=== PATIENT | female | born 1985 | race Caucasian/White ===

== ENCOUNTER 2017-09-01 17:14 | Emergency (ER) | payer BC ==
--- NOTE | 2017-09-01 17:46 | EDM.PDOC ---
ED HPI GENERAL MEDICAL PROBLEM - General Chief Complaint: Upper Extremity Injury/Pain Stated Complaint: RT SHOULDER INJURY Time Seen by Provider: 09/01/17 17:46 Source of Information: Reports: Patient - History of Present Illness INITIAL COMMENTS - FREE TEXT/NARRATIVE: Patient is here today for evaluation of right shoulder injury. She states that she was walking the dog almost 2 hours ago when she tripped over uneven concrete. She was holding the leash in her right hand and tried to maintain control of the leash and landed on her shoulder. She had immediate pain. She was able to move her arm a bit after the fall but states she has minimal movement at the shoulder right now. She can move the elbow without difficulty. Denies numbness or tingling. Patient has no chronic medical conditions. She is not on medications on a daily basis. She denies chance of . Treatments TOWER WATCHMAN: Reports: Other (see below) Other Treatments TOWER WATCHMAN: none Right Shoulder Pain Score (Numeric/FACES): 5 - Related Data Allergies Allergy/AdvReac Type Severity Reaction Status Date / Time No Known Allergies Allergy Verified 09/01/17 17:43 Home Meds: Home Meds Hydrocodone/Acetaminophen [Hydrocodon-Acetaminophen 5-325] 1 each PO Q6HR PRN # 15 tablet 09/01/17 [Rx] Past Medical History - Past Health History Medical/Surgical History: Denies Medical/Surgical History Social & Family History - Tobacco Use Smoking Status *Q: Never Smoker - Caffeine Use Caffeine Use: Reports: Coffee, Tea - Recreational Drug Use Recreational Drug Use: No Review of Systems - Review of Systems Review Of Systems: See Below Respiratory: Reports: No Symptoms Cardiovascular: Reports: No Symptoms Musculoskeletal: Reports: Shoulder Pain (Right) Skin: Reports: Wound (Right shoulder) Neurological: Reports: No Symptoms ED EXAM, GENERAL - Physical Exam Exam: See Below General Appearance: Alert, WD/WN, No Apparent Distress Peripheral Pulses: 2+: Radial (R) Extremities: Other (Right shoulder without ecchymosis or deformity. She has some superior swelling and an abrasion to the superior aspect of her shoulder. Tenderness superiorly and to AC joint. No clavicular or humeral tenderness. Limited ROM right shoulder due to pain. FROM right elbow. NV intact. Unit Manager Rn strength 5/5.) Neurological: Alert, Oriented, No Motor/Sensory Deficits Psychiatric: Normal Affect, Normal Mood Skin Exam: Warm, Dry, Other (Abrasion to superior aspect of right shoulder.) Course - Vital Signs Last Recorded V/S: Last Vital Signs Temp 98.2 F 09/01/17 17:40 Pulse 71 09/01/17 17:40 Resp 20 09/01/17 17:40 BP 130/93 H 09/01/17 17:40 Pulse Ox 100 09/01/17 17:40 - Orders/Labs/Meds Orders: Active Orders 24 hr Category Date Time Status Shoulder Comp Rt [CR] Stat Exams 09/01/17 18:03 Taken Durable Medical Equipment for Discharge [DME for Oth 09/01/17 18:43 Ordered Discharge] [COMM] Stat Meds: Medications Discontinued Medications Generic Name Dose Route Start Last Admin Trade Name Freq PRN Reason Stop Dose Admin Hydrocodone Bitart/Acetaminophen 1 tab 09/01/17 17:50 09/01/17 18:16 Blue 325-5 Mg PO 09/01/17 17:51 1 tab ONETIME ONE Administration - Re-Assessments/Exams Free Text/Narrative Re-Assessment/Exam: X-ray reviewed and does not demonstrate fracture or dislocation. Abrasion was cleaned a topical antibiotic and dressing were applied. Patient placed in a sling, advised to wear this daily. Pendulum exercises discussed at length and demonstrated to the patient to be done 1-2 times daily. She'll take ibuprofen 3 times daily, hydrocodone for breakthrough pain. Patient is to follow-up in the clinic next week if pain not resolved or sooner if needed. 09/01/17 19:00 Departure - Departure Time of Disposition: 18:56 Disposition: Home, Self-Care 01 Condition: Good Clinical Impression: Shoulder injury Qualifiers: Encounter type: initial encounter Laterality: right Qualified Code(s): S49.91XA - Unspecified injury of right shoulder and upper arm, initial encounter - Discharge Information Prescriptions: Hydrocodone/Acetaminophen [Hydrocodon-Acetaminophen 5-325] 1 each PO Q6HR PRN # 15 tablet PRN Reason: Pain Instructions: Shoulder Pain, [id number] Referrals: Magali Irizarry PA [Emergency Provider] - Forms: ED Department Discharge Additional Instructions: Rest, activity as tolerated. Keep your abrasion clean and dry. I recommend a topical antibiotic (triple antibiotic or bacitracin) 1-2 times daily for the next few days. Wear your shoulder sling throughout the day. Do the exercises explained to you in the emergency room 1-2 times every single day. Ice 15 minutes every few hours. Ibuprofen 600 mg 3 times daily. Hydrocodone for breakthrough pain. Follow-up in clinic ([phone]) in one week if pain not resolved or sooner if needed. - My Orders Last 24 Hours: My Active Orders 09/01/17 18:03 Shoulder Comp Rt [CR] Stat 09/01/17 18:43 Durable Medical Equipment for Discharge [DME for Discharge] [COMM] Stat - Assessment/Plan Last 24 Hours: My Active Orders 09/01/17 18:03 Shoulder Comp Rt [CR] Stat 09/01/17 18:43 Durable Medical Equipment for Discharge [DME for Discharge] [COMM] Stat
[2017-09-01] MEDS ORDERED: Acetaminophen/HYDROcodone 325-5 MG Tab PO ONE (17:50)
--- NOTE | 2017-09-02 16:37 | CR ---
Right shoulder: Three views of the right shoulder were obtained. Comparison: No prior study. Distal clavicle is slightly elevated. Glenohumeral joint appears within normal limits. No fracture or other abnormality is seen. Impression: 1. Distal clavicle is slightly elevated and minimal acromioclavicular separation is possible if patient has correlating symptoms. 2. Right shoulder study is otherwise unremarkable. Diagnostic code #3
== END 2017-09-01 19:05 | disposition home or self-care (01) ==
LOC: JD.ED 17:14
DX: S49.91XA Unspecified injury of right shoulder and upper arm, initial encounter (principal); W01.0XXA Fall on same level from slipping, tripping and stumbling without subsequent striking against object, initial encounter
CPT/HCPCS: 73030; 99284; A9270; 99283

== ENCOUNTER 2019-01-24 18:46 | Emergency (ER) | payer OTHER, BC ==
[2019-01-24] MEDS ORDERED: Sodium Chloride 0.9% 1,000 ML IV SCH (19:00)
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
[2019-01-24] MEDS ORDERED: Iopamidol 755 Mg/ML 100 ML Bottle IVPUSH ONE (19:09)
[2019-01-24] MEDS ORDERED: Sodium Chloride 0.9% 100 ML IV SCH (19:15)
[2019-01-24] MEDS ORDERED: Ibuprofen 600 MG Tab PO ONE (19:53)
--- NOTE | 2019-01-25 08:54 | CT ---
CT chest Technique: Multiple axial sections were obtained from above the lung apices inferiorly through the lung bases. Intravenous contrast was utilized. Findings: Pulmonary arteries are fairly well-opacified. No filling defects are seen to indicate pulmonary embolism. Aorta shows no aneurysm. No fluid seen within the mediastinum. No mediastinal mass or adenopathy is seen. No pericardial thickening is identified. Small nodule identified within the right lung base measuring 5 mm. Lungs otherwise are clear. No acute parenchymal change is seen. Bone window settings were reviewed which show no acute abnormality. Visualized portions of the upper abdominal structures show no discrete abnormality. Impression: 1. 5 mm nodule within the right lung base. If patient is not a smoker, this can be ignored. If patient is a smoker, recommend repeat noncontrast chest CT in one year. 2. No acute parenchymal change is seen within on CT study of the chest. Diagnostic code #9 Slightly disagree with preliminary report from [facility] (pulmonary nodule as noted above), finalized on 01/24/19, 8:31 PM Central Time, code #2
--- NOTE | 2019-01-25 08:57 | CT ---
CT cervical spine Technique: Multiple axial sections were obtained from above C1 inferiorly to the bottom of T3. Reconstructed sagittal and coronal images were reviewed. Findings: Vertebral body heights and disc spaces are maintained. No bony central or bony neural foraminal stenosis is seen. No fracture is seen. No abnormal subluxation is seen on the reconstructed sagittal images. Impression: 1. Nothing acute is seen on CT study of the cervical spine. Diagnostic code #1 I agree with preliminary report from [facility], finalized on 01/24/19, 8:28 PM Central Time
== END 2019-01-24 20:39 | disposition home or self-care (01) ==
LOC: JD.ED 18:46
DX: S20.219A Contusion of unspecified front wall of thorax, initial encounter (principal); S70.312A Abrasion, left thigh, initial encounter; S70.311A Abrasion, right thigh, initial encounter; R91.1 Solitary pulmonary nodule; V89.2XXA Person injured in unspecified motor-vehicle accident, traffic, initial encounter; V43.63XA Car passenger injured in collision with pick-up truck in traffic accident, initial encounter
CPT/HCPCS: 36415; 71275; 72125; 80053; 82553; 84484; 84703; 85025; 86850; 86900; 86901; 93005; 96360; 99285; A9270; J7030; J7040; Q9967; 93010; 99284

== ENCOUNTER 2019-07-19 07:27 | Day surgery (SDC) | payer BC, OTHER ==
--- NOTE | 2019-07-19 07:15 | PCM.PREANE ---
Preanesthetic Assessment - Anesthesia/Transfusion/Family Hx Anesthesia History: Prior Anesthesia Without Reaction Family History of Anesthesia Reaction: No Transfusion History: No Prior Transfusion(s) Intubation History: Unknown - Review of Systems General: No Symptoms, Fatigue, Malaise Pulmonary: No Symptoms Cardiovascular: No Symptoms, Lightheadedness (primarily with position changes) Gastrointestinal: No Symptoms (pelvic pain: 3/10 GERD on occcasion), Difficulty Swallowing (History of dry mouth dry eyes.) Neurological: No Symptoms (lumbosacral back pain: 0/10 today, motion sickness), Dizziness, Tingling (bilateral legs-non present today) Other: Reports: None, Thyroid Problems (history of thyroid nodule/hashimotos) - Physical Assessment NPO Status Date: 07/18/19 NPO Status Time: 22:00 Vital Signs: HR:80 BP:118/82 Sat:99% Resp:16 Temp:99.4 Height: 1.7 m Weight: 63 kg ASA Class: 2 Mental Status: Alert & Oriented x3 Airway Class: Mallampati = 2 Dentition: Reports: Normal Dentition, Caries Thyro-Mental Finger Breadths: 3 Mouth Opening Finger Breadths: 3 ROM/Head Extension: Full Lungs: Clear to Auscultation, Normal Respiratory Effort Cardiovascular: Regular Rate, Regular Rhythm, No Murmurs - Lab Values: Laboratory Last Values WBC 5.14 K/mm3 (3.98-10.04) 07/11/19 12:19 RBC 5.28 M/mm3 (3.98-5.22) H 07/11/19 12:19 Hgb 15.4 gm/dl (11.2-15.7) 07/11/19 12:19 Hct 45.8 % (34.1-44.9) H 07/11/19 12:19 MCV 86.7 fl (79.4-94.8) 07/11/19 12:19 MCH 29.2 pg (25.6-32.2) 07/11/19 12:19 MCHC 33.6 g/dl (32.2-35.5) 07/11/19 12:19 RDW Std Deviation 39.5 fL (36.4-46.3) 07/11/19 12:19 Plt Count 335 K/mm3 (182-369) 07/11/19 12:19 MPV 9.0 fl (9.4-12.3) L 07/11/19 12:19 Neut % (Auto) 52.7 % (34.0-71.1) 07/11/19 12:19 Lymph % (Auto) 37.4 % (19.3-51.7) 07/11/19 12:19 [place] % (Auto) 8.9 % (4.7-12.5) 07/11/19 12:19 Eos % (Auto) 0 (0.7-5.8) L 07/11/19 12:19 Baso % (Auto) 0.8 % (0.1-1.2) 07/11/19 12:19 Neut # (Auto) 2.71 K/mm3 (1.56-6.13) 07/11/19 12:19 Lymph # (Auto) 1.92 K/mm3 (1.18-3.74) 07/11/19 12:19 [place] # (Auto) 0.46 K/mm3 (0.24-0.36) H 07/11/19 12:19 Eos # (Auto) 0.00 K/mm3 (0.04-0.36) L 07/11/19 12:19 Baso # (Auto) 0.04 K/mm3 (0.01-0.08) 07/11/19 12:19 Creatinine 0.7 mg/dL (0.55-1.02) 07/11/19 12:19 Est Cr Clr Drug Dosing TNP 07/11/19 12:19 Estimated GFR (MDRD) > 60 mL/min (>60) 07/11/19 12:19 Urine Color Yellow (Yellow) 07/11/19 12:18 Urine Appearance Clear (Clear) 07/11/19 12:18 Urine pH 7.0 (5.0-8.0) 07/11/19 12:18 Ur Specific [place] 1.025 (1.005-1.030) 07/11/19 12:18 Urine Protein Negative (Negative) 07/11/19 12:18 Urine Glucose (UA) Negative (Negative) 07/11/19 12:18 Urine Ketones Negative (Negative) 07/11/19 12:18 Urine Occult Blood Negative (Negative) 07/11/19 12:18 Urine Nitrite Negative (Negative) 07/11/19 12:18 Urine Bilirubin Negative (Negative) 07/11/19 12:18 Urine Urobilinogen 0.2 (0.2-1.0) 07/11/19 12:18 Ur Leukocyte Esterase Negative (Negative) 07/11/19 12:18 Above labs reviewed and noted and within acceptable ranges to proceed with scheduled procedure. - Imaging/EKG Impressions: EKG: (2019) Sr rate= 76 - Allergies Allergies/Adverse Reactions: Allergies Allergy/AdvReac Type Severity Reaction Status Date / Time No Known Allergies Allergy Verified 07/18/19 11:39 - Anesthesia Plan Pre-Op Medication Ordered: None - Acknowledgements Anesthesia Type Planned: General Anesthesia Pt an Appropriate Candidate for the Planned Anesthesia: Yes Alternatives and Risks of Anesthesia Discussed w Pt/Guardian: Yes Pt/Guardian Understands and Agrees with Anesthesia Plan: Yes PreAnesthesia Questionnaire - Past Health History Medical/Surgical History: Denies Medical/Surgical History HEENT History: Reports: Impaired Vision, Other (See Below) Other HEENT History: dry eyes, wears glasses Cardiovascular History: Reports: None Respiratory History: Reports: None Gastrointestinal History: Reports: None Genitourinary History: Reports: None 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: Musculoskeletal History: Reports: Back Pain, Chronic, Other (See Below) Other Musculoskeletal History: leg weakness Neurological History: Reports: Other (See Below) Other Neuro History: dizziness Psychiatric History: Reports: None Endocrine/Metabolic History: Reports: Vitamin D Deficiency, Other (See Below) Other Endocrine/Metabolic History: thyroid nodule, hashimotos Hematologic History: Reports: None Immunologic History: Reports: None Oncologic (Cancer) History: Reports: None, Other (See Below) Other Oncologic History: BRCA + Dermatologic History: Reports: Other (See Below) Other Dermatologic History: cystic acne, rash - Past Surgical History Head Surgeries/Procedures: Reports: None HEENT Surgical History: Reports: Oral Surgery Cardiovascular Surgical History: Reports: None Respiratory Surgical History: Reports: None GI Surgical History: Reports: None Female Surgical History: Reports: None Male Surgical History: Reports: None Endocrine Surgical History: Reports: None Dermatological Surgical History: Reports: None - SUBSTANCE USE Smoking Status *Q: Never Smoker Recreational Drug Use History: No - HOME MEDS Home Medications: Home Meds Nystatin 1 dose PO BID 07/18/19 [History] Venlafaxine HCl [Venlafaxine ER] 75 mg PO DAILY 07/18/19 [History] - CURRENT (IN HOUSE) MEDS Current Meds: Current Medications Lactated Ringer's (Ringers, Lactated) 1,000 mls @ 125 mls/hr IV ASDIRECTED KIRSTEN Lidocaine/Sodium Bicarbonate (Buffered Lidocaine 1% In Ns 8.4%) 0.25 ml IDERM ONETIME PRN PRN Reason: Prior to IV Start Sodium Chloride (Saline Flush) 10 ml FLUSH ASDIRECTED PRN PRN Reason: Keep Vein Open
[~2019-07-19 07:27] MED LIST: Lactated Ringers 1,000 ML IV SCH; Lidocaine 1%/Sod Bicarbonate in NS 8.4% 1 ML Syringe IDERM PRN; Sodium Chloride 0.9% 10 ML Syringe FLUSH PRN
[2019-07-19] MEDS ORDERED: Ondansetron 4 MG/2 ML SDV ONE (07:48)
[2019-07-19] MEDS ORDERED: Lidocaine 1% 6 ML ONE (07:48)
[2019-07-19] MEDS ORDERED: Ketorolac 30 MG/ML SDV ONE (07:48)
[2019-07-19] MEDS ORDERED: HYDROmorphone 0.5 MG/0.5 ML Syringe ONE ×2 (07:48→10:38)
[2019-07-19] MEDS ORDERED: Lactated Ringers 1,000 ML ONE ×2 (07:48→09:56)
[2019-07-19] MEDS ORDERED: ceFAZolin 1 GM Vial ONE (07:48)
[2019-07-19] MEDS ORDERED: Propofol 200 MG/20 ML SDV ONE (07:48)
[2019-07-19] MEDS ORDERED: Rocuronium 50 MG/5 ML Vial ONE (07:48)
[2019-07-19] MEDS ORDERED: Dexamethasone 4 MG/ML 5 ML MDV ONE (07:48)
[2019-07-19] MEDS ORDERED: fentaNYL 250 MCG/5 ML SDV ONE (07:49)
[2019-07-19] MEDS ORDERED: Midazolam 1 MG/ML 2 ML SDV ONE (07:49)
[2019-07-19] MEDS ORDERED: Scopolamine 1.5 MG Transdermal Patch TRDERM SCH (08:05)
[2019-07-19] MEDS ORDERED: Midazolam 1 MG/ML 2 ML SDV IVPUSH PRN (09:28)
[2019-07-19] MEDS ORDERED: HYDROmorphone 0.5 MG/0.5 ML Syringe IVPUSH PRN (09:28)
[2019-07-19] MEDS ORDERED: Ondansetron 4 MG/2 ML SDV IVPUSH PRN ×2 (09:28→10:47)
[2019-07-19] MEDS ORDERED: ePHEDrine 50 MG/ML SDV IVPUSH PRN (09:28)
[2019-07-19] MEDS ORDERED: diphenhydrAMINE 50 MG/ML SDV IVPUSH PRN (09:28)
[2019-07-19] MEDS ORDERED: fentaNYL 100 MCG/2 ML SDV IVPUSH PRN (09:28)
[2019-07-19] MEDS ORDERED: Phenylephrine 1 MG in Sodium Chloride 0.9% 10 ML IV SCH (09:30)
[2019-07-19] MEDS: Bupivacaine 0.5% 30 ML SDV ONE ×2 (09:39→09:51)
[2019-07-19] MEDS: Sodium Chloride 0.9% 50 ML SDV ONE ×2 (09:51→10:00)
[2019-07-19] MEDS: Lidocaine 1% with EPINEPHrine 1:100,000 20 ML MDV ONE ×2 (09:51→10:00)
[2019-07-19] MEDS ORDERED: Meperidine 50 MG/ML Vial IVPUSH PRN (10:46)
--- NOTE | 2019-07-19 10:46 | PCM.POSTAN ---
POST ANESTHESIA ASSESSMENT - MENTAL STATUS Mental Status: Alert - VITAL SIGNS Vital Signs: Last Vital Signs Temp 97.7 07/19/19 1039 Pulse 108 07/19/19 1039 Resp 11 07/19/19 1039 BP 119/75 07/19/19 1039 Pulse Ox 108 07/19/19 1039 - RESPIRATORY Respiratory Status: Respiratory Rate WNL, Airway Patent, O2 Saturation Stable, Supplemental Oxygen - CARDIOVASCULAR CV Status: Pulse Rate WNL, Blood Pressure Stable - GASTROINTESTINAL GI Status: No Symptoms - POST OP HYDRATION Hydration Status: Adequate & Stable
[2019-07-19] MEDS ORDERED: Acetaminophen/oxyCODONE 325-5 MG Tab PO PRN (10:47)
--- NOTE | 2019-07-19 10:55 | PCM.OPNOTE ---
- General Post-Op/Procedure Note Date of Surgery/Procedure: 07/19/19 Operative Procedure(s): Laparoscopically assisted total vaginal hysterectomy with bilateral salpingo-oophorectomy Findings: Uterus tubes and ovaries appeared within normal limits. The appendix was noninflamed and flaccid. Gallbladder was filled but appeared noninflamed. Liver edge is within normal limits. No Pelvic pathology noted. Pre Op Diagnosis: 1. Pelvic pain. 2. BRCA1 positive Post-Op Diagnosis: Same Anesthesia Technique: General ET Tube, Local Other Anesthesia Type: Marcaine 0.5%3-5 mL local at each abdominal incision site. Lidocaine quart Primary Surgeon: Dani Lim Secondary Surgeon: Kris Vyas Anesthesia Provider: Marsha Vazquez Radio Interference Trouble Shooter: Natalie Euceda Reason Radio Interference Trouble Shooter Was Necessary: Retraction, assistance, patient safety, quality of care. Pathology: Uterus, bilateral fallopian tubes and ovaries. Fluid Replacement, Intraop: 1,500 Output, Urine Amount: 500 EBL in mLs: 100 Drain/Tube Comments:: Indwelling bladder catheter during surgery only Complications: None Condition: Good Free Text/Narrative:: Surgery duration: 51 minutes The patient was taken to the operating room placed in supine position on the operating table. She received 2 g of Ancef preoperatively for infection prophylaxis. She had signed consent previously. After adequate anesthesia patient was placed in a dorsal lithotomy position. It should be noted she had sequential compression stockings in place for DVT prophylaxis. A uterine manipulator was placed as was an latex free indwelling bladder catheter. This was done after adequate prepping and draping. The patient was placed in supine position and 3 laparoscopic port sites were developed. Marcaine 0.5% approximately 3-5 mL was injected at each site. Verres needle was placed and pneumoperitoneum was achieved with 3.5 L of CO2. Infraumbilical and 2 lateral port sites were developed. Under laparoscopic guidance the upper portion of the hysterectomy was performed. The right infundibulopelvic ligament was elevated and crossclamped using the endoseal computerized cautery device effectively removing the right ovary. The round ligament was taken down to the broad ligament. At this time attention was turned to the left side and the left infundibulopelvic ligament and the triple ligament were then taken down in a similar fashion. Broad ligament was taken down to the area of the uterine vasculature. Uterine vasculature was developed in the usual fashion using the cautery system. Both uterine arteries were identified and developed. Vaginal approach was then undertaken. The patient was placed in the dorsal lithotomy position and a weighted speculum was placed in the vagina. The cervix was injected with lidocaine quarter percent with epinephrine 20 mL total. A full circumference incision was made through the epithelium around the cervix. Posterior cul-de-sac was entered without problems. The left uterosacral ligament and then the right uterosacral were taken down using the Enseal vessel closure system. The cardinal ligament and what remained of the uterine vascular vessels and cervical branches of the vessels were managed with the Enseal vessel closure system on each side. Anterior cul-de-sac was then entered and the remaining portion of broad ligament on the right side and a small portion of broad ligament remaining on the left side were then developed in the usual fashion. Uterus was then removed. At this point the uterus was completely removed and sent as specimen. The vaginal cuff was then run with a locked running suture of 0 Monocryl from the 2 o'clock position to the 10 o'clock position. The vagina was closed with a running locked suture of 0 Monocryl. Hemostasis was confirmed this time and no bleeding was noted. Laparoscopy was then performed to ensure hemostasis. Pneumoperitoneum was reestablished and the laparoscope was placed. The pelvis was found to be hemostatically intact. There was no evidence of any bowel adhesion to the vaginal cuff area noted. The sleeves were removed under direct visualization and the upper sleeve was removed after reversal of the pneumoperitoneum. Each of these sites were closed with a single interrupted suture of 3-0 Monocryl. They were further approximated with Dermabond skin glue. At this point the patient was awakened from general endotracheal anesthesia. The Baumann catheter had been removed by this time. She is discharged from the operating room in good condition.
--- NOTE | 2019-07-19 11:12 | PCM48HPAN ---
Post Anesthesia Note - EVALUATION WITHIN 48HRS OF ANESTHETIC Vital Signs in Normal Range: Yes Patient Participated in Evaluation: Yes Respiratory Function Stable: Yes Airway Patent: Yes Cardiovascular Function Stable: Yes Hydration Status Stable: Yes Pain Control Satisfactory: Yes Nausea and Vomiting Control Satisfactory: Yes Mental Status Recovered: Yes Vital Signs: Last Vital Signs Temp 36.5 C 07/19/19 10:39 Pulse 80 07/19/19 07:40 Resp 12 07/19/19 11:00 BP 115/68 07/19/19 11:00 Pulse Ox 100 07/19/19 11:02
[2019-07-19] MEDS ORDERED: Ibuprofen 600 MG Tab PO PRN (14:00)
== END 2019-07-19 13:50 | disposition home or self-care (01) ==
LOC: JD.SDS 07:27
PROVIDERS: ATTEND Obstetrics & Gynecology
DX: N72 Inflammatory disease of cervix uteri (principal); N70.01 Acute salpingitis; N70.11 Chronic salpingitis; N83.8 Other noninflammatory disorders of ovary, fallopian tube and broad ligament; D27.1 Benign neoplasm of left ovary; D27.0 Benign neoplasm of right ovary; N83.12 Corpus luteum cyst of left ovary; N83.11 Corpus luteum cyst of right ovary; N83.02 Follicular cyst of left ovary; N83.01 Follicular cyst of right ovary; Z15.09 Genetic susceptibility to other malignant neoplasm; Z79.899 Other long term (current) drug therapy
CPT/HCPCS: 36415; 58552; 81003; 81025; 82565; 85025; 86850; 86900; 86901; A9270; J0690; J1100; J1170; J1885; J2001; J2250; J2405; J2704; J2710; J3010; J3490; J7120; 00840

== ENCOUNTER 2019-08-04 09:09 | Emergency (ER) | payer OTHER ==
--- NOTE | 2019-08-04 10:45 | EDM.PDOC ---
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 She also had had some mild pelvic pain and cramping. No chest pain or difficulty breathing. She had been having light brown flow prior to this but no prior bleeding. No unusual lightheadedness or dizziness. Lower Abdomen Pain Score (Numeric/FACES): 3 - Related Data Allergies Allergy/AdvReac Type Severity Reaction Status Date / Time No Known Allergies Allergy Verified 08/04/19 09:25 Home Meds: Home Meds Nystatin 1 dose PO BID 07/18/19 [History] Venlafaxine HCl [Venlafaxine ER] 150 mg PO DAILY 07/18/19 [History] Acetaminophen/oxyCODONE [Percocet 325-5 MG] 2 tab PO Q4H PRN #30 tablet [Rx] Ibuprofen [Motrin] 600 mg PO Q4H PRN tablet 07/19/19 [Rx] Past Medical History - Past Health History Medical/Surgical History: Denies Medical/Surgical History HEENT History: Reports: Impaired Vision, Other (See Below) Other HEENT History: dry eyes, wears glasses Cardiovascular History: Reports: None Respiratory History: Reports: None Gastrointestinal History: Reports: None Genitourinary History: Reports: None 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: 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: Musculoskeletal History: Reports: Back Pain, Chronic, Other (See Below) Other Musculoskeletal History: leg weakness Neurological History: Reports: Other (See Below) Other Neuro History: dizziness Psychiatric History: Reports: None Endocrine/Metabolic History: Reports: Vitamin D Deficiency, Other (See Below) Other Endocrine/Metabolic History: thyroid nodule, hashimotos Hematologic History: Reports: None Immunologic History: Reports: None Oncologic (Cancer) History: Reports: None, Other (See Below) Other Oncologic History: BRCA + Dermatologic History: Reports: Other (See Below) Other Dermatologic History: cystic acne, rash - Past Surgical History Head Surgeries/Procedures: Reports: None HEENT Surgical History: Reports: Oral Surgery Cardiovascular Surgical History: Reports: None Respiratory Surgical History: Reports: None GI Surgical History: Reports: None Female Surgical History: Reports: None, Hysterectomy Endocrine Surgical History: Reports: None Dermatological Surgical History: Reports: None Social & Family History - Tobacco Use Smoking Status *Q: Never Smoker Second Hand Smoke Exposure: No - Caffeine Use Caffeine Use: Reports: None - Recreational Drug Use Recreational Drug Use: No - Living Situation & Occupation Living situation: Reports: Occupation: Employed ED ROS GENERAL - Review of Systems Review Of Systems: See Below Constitutional: Denies: Fever, Chills, Diaphoresis HEENT: Reports: No Symptoms Respiratory: Denies: Shortness of Breath Cardiovascular: Denies: Chest Pain GI/Abdominal: Reports: Abdominal Pain (mild lower abd and pelvic pain) Musculoskeletal: Reports: No Symptoms Skin: Reports: No Symptoms Neurological: Reports: No Symptoms ED EXAM, RENAL/ - Physical Exam Exam: See Below General Appearance: Alert, No Apparent Distress Eye Exam: Bilateral Eye: PERRL Throat/Mouth: Normal Inspection Head: Atraumatic Neck: Supple Respiratory/Chest: No Respiratory Distress, Lungs Clear Cardiovascular: Regular Rate, Rhythm GI/Abdominal: Soft, Non-Tender. No: Guarding (Female) Exam: Other (small amt of bright blood in post vag. vault, not able to see a specific site or origin, no clot visible) Back Exam: No: CVA Tenderness (L), CVA Tenderness (R) Extremities: Normal Inspection, Normal Range of Motion Neurological: Alert, Oriented, No Motor/Sensory Deficits Skin Exam: Warm, Dry, Normal Color Course - Vital Signs Last Recorded V/S: Last Vital Signs Temp 36.9 C 08/04/19 09:26 Pulse 76 08/04/19 09:26 Resp 12 08/04/19 09:26 BP 113/81 08/04/19 09:26 Pulse Ox 100 08/04/19 09:26 - Orders/Labs/Meds Labs: Laboratory Tests 08/04/19 Range/Units 10:10 WBC 5.05 (3.98-10.04) K/mm3 RBC 4.79 (3.98-5.22) M/mm3 Hgb 14.0 (11.2-15.7) gm/dl Hct 41.8 (34.1-44.9) % MCV 87.3 (79.4-94.8) fl MCH 29.2 (25.6-32.2) pg MCHC 33.5 (32.2-35.5) g/dl RDW Std Deviation 38.4 (36.4-46.3) fL Plt Count 348 (182-369) K/mm3 MPV 8.4 L (9.4-12.3) fl Neut % (Auto) 66.6 (34.0-71.1) % Lymph % (Auto) 26.3 (19.3-51.7) % [place] % (Auto) 6.3 (4.7-12.5) % Eos % (Auto) 0 L (0.7-5.8) Baso % (Auto) 0.6 (0.1-1.2) % Neut # (Auto) 3.36 (1.56-6.13) K/mm3 Lymph # (Auto) 1.33 (1.18-3.74) K/mm3 [place] # (Auto) 0.32 (0.24-0.36) K/mm3 Eos # (Auto) 0.00 L (0.04-0.36) K/mm3 Baso # (Auto) 0.03 (0.01-0.08) K/mm3 - Re-Assessments/Exams Free Text/Narrative Re-Assessment/Exam: 08/04/19 12:31. 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 She does suggest either CT or US if available to check for hematoma and to make sure there is not a large post surgical hematoma. US has been ordered. It is past change of shift. Will transfer care to Dr Kan. Hgb is back at 14. Vitals have been stable. 08/04/19 12:34. I have suggested to Dr Kan that he contact Dr Lim once US results are available. Departure - Departure Disposition: Home, Self-Care 01 Clinical Impression: Postoperative vaginal bleeding - Discharge Information Referrals: Josef Hawthorne MD [Primary Care Provider] - Dani Lim MD [Physician] - Forms: ED Department Discharge Additional Instructions: You were seen in the emergency room after developing vaginal bleeding following a hysterectomy 16 days ago. Work-up in the ER included a CBC and a transabdominal pelvic ultrasound. Your CBC was unremarkable. You are not anemic. The pelvic ultrasound found a postoperative hematoma. This is most likely the cause of your bleeding - drainage from liquefaction of the hematoma. Your case was discussed with Dr. Lim. He would like you to contact one of his nurses in the clinic at 8:00 tomorrow morning, to make an appointment to be seen by him at 930 tomorrow morning. Make sure that they know that you are following up from the ER, and that Dr. Lim specifically requested that time slot. If, however, before that time, your symptoms worsen, please do not hesitate to return to the ER for reevaluation. Sepsis Event Note - Evaluation Sepsis Screening Result: No Definite Risk - Focused Exam Vital Signs: Vital Signs Temp Pulse Resp BP Pulse Ox 08/04/19 09:26 36.9 C 76 12 113/81 100 Date Exam was Performed: 08/04/19 Time Exam was Performed: 12:28 <Pawan Kan - Last Filed: 08/04/19 14:08> Course - Re-Assessments/Exams Free Text/Narrative Re-Assessment/Exam: 08/04/19 13:[address] Infante. Transabdominal pelvic ultrasound is read by Dr. Redding as: 1. Small amount of fluid within the pelvis most likely representing small amount of blood/hematoma from prior surgery. 2. Interval hysterectomy from prior exam with probable postop hematoma within the surgical bed measuring up to 9.1 cm. 3. No adnexal abnormalities are appreciated. 08/04/19 14:[address] Lim at 13:59. He inquired as to how much the patient was currently bleeding. She stated that at her peak, she was bleeding about 1 pad per hour, but that it has been diminishing since. He recommended that the patient contact his office at 8:00 tomorrow morning, to make an appointment to be seen at 9:30 tomorrow morning. In the meantime, however, if the patient's condition declines, she is to return to the ED, and he can then come in and evaluate her. Departure - Departure Time of Disposition: 14:05 Condition: Good - Discharge Information *PRESCRIPTION DRUG MONITORING PROGRAM REVIEWED*: Not Applicable *COPY OF PRESCRIPTION DRUG MONITORING REPORT IN PATIENT BROCK: Not Applicable Sepsis Event Note - Focused Exam Date Exam was Performed: 08/04/19 Time Exam was Performed: 14:04
--- NOTE | 2019-08-04 13:47 | US ---
Pelvic ultrasound: Multiple real-time images were obtained transabdominally. Comparison: Previous pelvic ultrasound study of 07/02/19. Uterus not seen compatible with prior hysterectomy. Vaginal cuff appears within normal limits. Small amount of fluid seen within the pelvis most likely due to small amount of blood/hematoma. No adnexal abnormalities are seen. Hypoechoic area noted within the previous hysterectomy site measuring 9.1 x 1.7 x 5.9 cm most likely due to hematoma. No additional abnormality is appreciated. Impression: 1. Small amount of fluid within the pelvis most likely representing small amount of blood/hematoma from prior surgery. 2. Interval hysterectomy from prior exam with probable postop hematoma within the surgical bed measuring up to 9.1 cm. 3. No adnexal abnormalities are appreciated. Diagnostic code #3 This report was dictated in MDT
== END 2019-08-04 14:10 | disposition home or self-care (01) ==
LOC: JD.ED 09:09
DX: N99.820 Postprocedural hemorrhage of a genitourinary system organ or structure following a genitourinary system procedure (principal); Z79.899 Other long term (current) drug therapy
CPT/HCPCS: 36415; 76857; 76857-26; 85025; 99282; 99284-25

== ENCOUNTER 2020-07-09 10:23 | Observation (INO) | payer BC, OTHER ==
[2020-07-09] MEDS ORDERED: Sodium Chloride 0.9% 10 ML Syringe FLUSH PRN (10:54)
[2020-07-09] MEDS ORDERED: HYDROmorphone 0.5 MG/0.5 ML Syringe IVPUSH ONE ×3 (10:54→14:44)
[2020-07-09] MEDS ORDERED: Ondansetron 4 MG/2 ML SDV IVPUSH ONE (10:57)
[2020-07-09] MEDS ORDERED: Sodium Chloride 0.9% 1,000 ML IV SCH (11:00)
[2020-07-09] MEDS ORDERED: Iopamidol 612 MG/ML 100 ML Bottle IVPUSH ONE (11:02)
[2020-07-09] MEDS: Sodium Chloride 0.9% 10 ML Syringe FLUSH PRN ×2 (11:13→11:33)
--- NOTE | 2020-07-09 11:29 | EDM.PDOC ---
ED HPI GENERAL MEDICAL PROBLEM - General Chief Complaint: Abdominal Pain Stated Complaint: LOWER RT SIDE ABD PAIN Time Seen by Provider: 07/09/20 10:38 Source of Information: Reports: Patient History Limitations: Reports: No Limitations - History of Present Illness INITIAL COMMENTS - FREE TEXT/NARRATIVE: 34-year-old female who presents to the emergency department today with com plaints of right lower quadrant abdominal pain. Patient states this pain started last evening while she was at home. Patient states she was not doing anything strenuous when the pain developed. She states it started out as a dull ache. States she also had some chills last night and associated nausea. Denies vomiting. States she woke in the middle the night and the pain was a little more severe however she was able to fall back to sleep however this morning she states the pain is quite intense stabbing burning pain. She states that any movement ambulation and riding in a car causes her significant pain to the right lower quadrant. She also states she did have the chills this morning and nausea. She did attempt to eat breakfast however she ate about 5 grapes and stated she could not eat anymore. She states she had a total vaginal hysterectomy with removal of her ovaries however she does still have an appendix. She has a history of Nneka's however she is not on thyroid repl acement. She is otherwise healthy. Right Abdomen Pain Score (Numeric/FACES): 6 - Related Data Allergies Allergy/AdvReac Type Severity Reaction Status Date / Time No Known Allergies Allergy Verified 07/09/20 10:41 Home Meds: Home Meds Venlafaxine HCl [Venlafaxine ER] 150 mg PO DAILY 07/18/19 [History] Past Medical History - Past Health History Medical/Surgical History: Denies Medical/Surgical History HEENT History: Reports: Impaired Vision, Other (See Below) Other HEENT History: dry eyes, wears glasses Cardiovascular History: Reports: None Respiratory History: Reports: None Gastrointestinal History: Reports: None Genitourinary History: Reports: None 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: Musculoskeletal History: Reports: Back Pain, Chronic, Other (See Below) Other Musculoskeletal History: leg weakness Neurological History: Reports: Other (See Below) Other Neuro History: dizziness Psychiatric History: Reports: None Endocrine/Metabolic History: Reports: Vitamin D Deficiency, Other (See Below) Other Endocrine/Metabolic History: thyroid nodule, hashimotos Hematologic History: Reports: None Immunologic History: Reports: None Oncologic (Cancer) History: Reports: Other (See Below) Other Oncologic History: BRCA + Dermatologic History: Reports: Other (See Below) Other Dermatologic History: cystic acne, rash - Past Surgical History HEENT Surgical History: Reports: Oral Surgery Female Surgical History: Reports: Hysterectomy Social & Family History - Tobacco Use Tobacco Use Status *Q: Never Tobacco User Second Hand Smoke Exposure: No - Caffeine Use Caffeine Use: Reports: Tea - Recreational Drug Use Recreational Drug Use: No - Living Situation & Occupation Living situation: Reports: Occupation: Employed ED ROS GENERAL - Review of Systems Review Of Systems: See Below Constitutional: Reports: Chills, Decreased Appetite. Denies: Fever HEENT: Reports: No Symptoms Respiratory: Reports: No Symptoms Cardiovascular: Reports: No Symptoms Endocrine: Reports: No Symptoms GI/Abdominal: Reports: Abdominal Pain (Right lower quadrant), Decreased Appetite, Nausea. Denies: Constipation, Diarrhea, Vomiting : Reports: No Symptoms Musculoskeletal: Reports: No Symptoms Skin: Reports: No Symptoms Neurological: Reports: No Symptoms Psychiatric: Reports: No Symptoms Hematologic/Lymphatic: Reports: No Symptoms Immunologic: Reports: No Symptoms ED EXAM, GI/ABD - Physical Exam Exam: See Below Exam Limited By: No Limitations General Appearance: Alert, WD/WN, Moderate Distress Ears: Normal External Exam, Hearing Grossly Normal Nose: Normal Inspection Throat/Mouth: Normal Inspection, Normal Voice, No Airway Compromise Head: Atraumatic, Normocephalic Neck: Normal Inspection, Supple, Non-Tender, Full Range of Motion Respiratory/Chest: No Respiratory Distress, Lungs Clear, Normal Breath Sounds, No Accessory Muscle Use, Chest Non-Tender Cardiovascular: Normal Peripheral Pulses, Regular Rate, Rhythm, No Edema, No Murmur GI/Abdominal Exam: Normal Bowel Sounds, Soft, No Distention, Guarding, Tender (In all quadrants with palpation however she states the pain radiates to her right lower quadrant with palpation) (Female) Exam: Deferred Rectal (Female) Exam: Deferred Back Exam: Normal Inspection, Full Range of Motion Extremities: Normal Inspection, Normal Range of Motion, Non-Tender, No Pedal Edema, Normal Capillary Refill Neurological: Alert, Oriented, Normal Cognition Psychiatric: Normal Affect, Normal Mood Skin Exam: Warm, Dry, Intact, Normal Color, No Rash Lymphatic: No Adenopathy Course - Vital Signs Text/Narrative:: 34-year-old female with a chief complaint of right lower quadrant abdominal pain that started last evening with associated chills and nausea. Patient states the pain has become significantly worse since last evening and into this morning. Patient has been nauseated but has not vomited. She did attempt to eat this morning however she was unable and only ate about 5 grapes. She states that the pain is aggravated by ambulation or riding in a car. She does have a history of total vaginal hysterectomy with oophorectomy. However she states she still has her appendix. She states she did have a bowel movement this morning and it was quite painful to her right lower quadrant however she states the stool appeared normal. She denies any dysuria. Upon examination bowel tones are positive however right lower quadrant is exquisitely tender with palpation. Patient also does report increased pain to right lower quadrant with elevation of right leg against resistance. I have ordered labs, CT of the abdomen and pelvis with IV contrast only as patient would not be able to tolerate p.o. contrast to due to her nausea. I have ordered IV fluids as patient likely has not eaten or drank much since the pain and nausea started, pain medications and nausea medicine. Last Recorded V/S: Last Vital Signs Temp 98.1 F 07/09/20 10:37 Pulse 77 07/09/20 10:37 Resp 14 07/09/20 10:37 BP 122/89 07/09/20 10:37 Pulse Ox 98 07/09/20 10:37 - Orders/Labs/Meds Orders: Active Orders 24 hr Category Date Time Status Sodium Chloride 0.9% [Normal Saline] 1,000 ml Med 07/09/20 11:00 Active IV ASDIRECTED Sodium Chloride 0.9% [Saline Flush] Med 07/09/20 10:54 Active 10 ml FLUSH ASDIRECTED PRN Sodium Chloride 0.9% [Saline Flush] Med 07/09/20 11:02 Active 10 ml FLUSH ONETIME PRN Saline Lock Insert [OM.PC] Stat Oth 07/09/20 10:54 Ordered Medication Orders Sodium Chloride (Normal Saline) 1,000 mls @ 150 mls/hr IV ASDIRECTED KIRSTEN Last Admin: 07/09/20 11:11 Dose: 150 mls/hr Documented by: LILY Sodium Chloride (Saline Flush) 10 ml FLUSH ASDIRECTED PRN PRN Reason: Keep Vein Open Sodium Chloride (Saline Flush) 10 ml FLUSH ONETIME PRN PRN Reason: IV FLUSH Last Admin: 07/09/20 11:33 Dose: 10 ml Documented by: Admin: 07/09/20 11:13 Dose: 10 ml Documented by: LILY Labs: Laboratory Tests 07/09/20 07/09/20 07/09/20 Range/Units 11:01 11:01 11:23 WBC 7.47 (3.98-10.04) K/mm3 RBC 5.30 H (3.98-5.22) M/mm3 Hgb 15.2 (11.2-15.7) gm/dl Hct 45.5 H (34.1-44.9) % MCV 85.8 (79.4-94.8) fl MCH 28.7 (25.6-32.2) pg MCHC 33.4 (32.2-35.5) g/dl RDW Std Deviation 38.2 (36.4-46.3) fL Plt Count 284 (182-369) K/mm3 MPV 8.8 L (9.4-12.3) fl Neut % (Auto) 67.9 (34.0-71.1) % Lymph % (Auto) 21.7 (19.3-51.7) % [place] % (Auto) 10.3 (4.7-12.5) % Eos % (Auto) 0 L (0.7-5.8) Baso % (Auto) 0.0 L (0.1-1.2) % Neut # (Auto) 5.07 (1.56-6.13) K/mm3 Lymph # (Auto) 1.62 (1.18-3.74) K/mm3 [place] # (Auto) 0.77 H (0.24-0.36) K/mm3 Eos # (Auto) 0.00 L (0.04-0.36) K/mm3 Baso # (Auto) 0.00 L (0.01-0.08) K/mm3 Sodium 143 (136-145) mEq/L Potassium 4.4 (3.5-5.1) mEq/L Chloride 104 (98-107) mEq/L Carbon Dioxide 30 (21-32) mEq/L Anion Gap 13.4 (5-15) BUN 11 (7-18) mg/dL Creatinine 0.8 (0.55-1.02) mg/dL Est Cr Clr Drug Dosing 95.45 mL/min Estimated GFR (MDRD) > 60 (>60) mL/min BUN/Creatinine Ratio 13.8 L (14-18) Glucose 86 (74-106) mg/dL Calcium 9.2 (8.5-10.1) mg/dL Total Bilirubin 0.5 (0.2-1.0) mg/dL AST 19 (15-37) U/L ALT 33 (14-59) U/L Alkaline Phosphatase 98 (46-116) U/L C-Reactive Protein 0.9 (<1.0) mg/dL Total Protein 7.8 (6.4-8.2) g/dl Albumin 4.2 (3.4-5.0) g/dl Globulin 3.6 gm/dL Albumin/Globulin Ratio 1.2 (1-2) Urine Color Light yellow (Yellow) Urine Appearance Slt cloudy H (Clear) Urine pH 8.0 (5.0-8.0) Ur Specific Maribel 1.020 (1.005-1.030) Urine Protein Negative (Negative) Urine Glucose (UA) Negative (Negative) Urine Ketones Negative (Negative) Urine Occult Blood Negative (Negative) Urine Nitrite Negative (Negative) Urine Bilirubin Negative (Negative) Urine Urobilinogen 0.2 (0.2-1.0) Ur Leukocyte Esterase Negative (Negative) Meds: Medications Generic Name Dose Route Start Last Admin Trade Name Freq PRN Reason Stop Dose Admin Sodium Chloride 1,000 mls @ 150 mls/hr 07/09/20 11:00 07/09/20 11:11 Normal Saline IV 150 mls/hr ASDIRECTED KIRSTEN Administration Sodium Chloride 10 ml 07/09/20 10:54 Saline Flush FLUSH ASDIRECTED PRN Keep Vein Open Sodium Chloride 10 ml 07/09/20 11:02 07/09/20 11:33 Saline Flush FLUSH 10 ml ONETIME PRN Administration IV FLUSH Discontinued Medications Generic Name Dose Route Start Last Admin Trade Name Freq PRN Reason Stop Dose Admin Hydromorphone HCl 0.5 mg 07/09/20 10:54 07/09/20 11:12 Dilaudid IVPUSH 07/09/20 10:55 0.5 mg ONETIME ONE Administration Hydromorphone HCl 0.5 mg 07/09/20 12:41 07/09/20 13:16 Dilaudid IVPUSH 07/09/20 12:42 0.5 mg ONETIME ONE Administration Iopamidol 100 ml 07/09/20 11:02 07/09/20 11:33 Isovue-300 (61%) IVPUSH 07/09/20 11:03 100 ml ONETIME ONE Administration Ondansetron HCl 4 mg 07/09/20 10:57 07/09/20 11:12 Zofran IVPUSH 07/09/20 10:58 4 mg ONETIME ONE Administration - Re-Assessments/Exams Free Text/Narrative Re-Assessment/Exam: 07/09/20 12:23 CBC reveals a WBC of 7.47, hemoglobin 15.2, hematocrit 45.5, chemistry is unremarkable, C-reactive protein 0.9 Urinalysis is unremarkable. 07/09/20 12:[address] of the abdomen and pelvis: 1. Fair amount of free fluid within the pelvis. There is slight wall thickening suggested within the hepatic flexure extending of the transverse and ascending colon. This could possibly represent a mild colitis. Stool is also seen within the colon which is at the upper limits of normal. I called Dr. Sullivan, surgeon on-call regarding this patient. He states he will be in to see her. States her pain is unchanged. I will order another dose of pain medication for her. 07/09/20 13:35 Dr. Sullivan here to evaluate the patient. She will be admitted under observation status. Departure - Departure Time of Disposition: 13:36 Disposition: Refer to Observation Condition: Fair Clinical Impression: Abdominal pain Qualifiers: Abdominal location: right lower quadrant Qualified Code(s): R10.31 - Right lower quadrant pain - Discharge Information Referrals: Josef Hawthorne MD [Primary Care Provider] - Forms: ED Department Discharge Sepsis Event Note (ED) - Evaluation Sepsis Screening Result: No Definite Risk - Focused Exam Vital Signs: Vital Signs Temp Pulse Resp BP Pulse Ox 07/09/20 10:37 98.1 F 77 14 122/89 98 - My Orders Last 24 Hours: My Active Orders 07/09/20 10:54 Sodium Chloride 0.9% [Saline Flush] 10 ml FLUSH ASDIRECTED PRN Saline Lock Insert [OM.PC] Stat 07/09/20 11:00 Sodium Chloride 0.9% [Normal Saline] 1,000 ml IV ASDIRECTED 07/09/20 11:02 Sodium Chloride 0.9% [Saline Flush] 10 ml FLUSH ONETIME PRN - Assessment/Plan Last 24 Hours: My Active Orders 07/09/20 10:54 Sodium Chloride 0.9% [Saline Flush] 10 ml FLUSH ASDIRECTED PRN Saline Lock Insert [OM.PC] Stat 07/09/20 11:00 Sodium Chloride 0.9% [Normal Saline] 1,000 ml IV ASDIRECTED 07/09/20 11:02 Sodium Chloride 0.9% [Saline Flush] 10 ml FLUSH ONETIME PRN
--- NOTE | 2020-07-09 12:00 | CT ---
Addendum: Study was reviewed. There is slight wall thickening suggested within the hepatic flexure extending of the transverse and ascending colon. This could possibly represent a mild colitis. Stool is also seen within the colon which is at the upper limits of normal. --- Addendum1 above dictated on [07/09/2020 12:19] by [Afshan Redding, Tony Meehan] --- --- Addendum1 above signed on [07/09/2020 12:29] by [Afshan Redding, Tony Meehan] --- --- Original report below dictated on [07/09/2020 11:51] by [Afshan Redding, Tony Meehan] --- --- Original report below signed on [07/09/2020 11:57] by [Afshan Redding, Tony Meehan] --- CT abdomen and pelvis Technique: Multiple axial sections were obtained from above the dome of the diaphragm inferiorly through the pubic symphysis. Intravenous contrast was utilized. No oral contrast has been given. Reconstructed coronal and sagittal images were obtained. Comparison: No prior CT abdomen or pelvis exam is available. Findings: Visualized lung bases show nothing acute. Liver shows no focal parenchymal abnormality. Spleen is within normal limits. Adrenal glands show no nodule. Pancreas shows no discrete abnormality. Gallbladder contains no calcified gallstones. Kidneys show symmetric contrast enhancement with no hydronephrosis or mass being seen. Abdominal aorta shows no aneurysm. No retroperitoneal adenopathy or mesenteric abnormalities are appreciated. Fair amount of free fluid is seen within the pelvis. Appendix is seen which is normal. Delayed images through the bladder show contrast within the bladder. Impression: 1. Fair amount of free fluid within the pelvis. Etiology for this fluid is not seen but most likely represents a nonvisualized ruptured adnexal cyst. 2. No additional abnormality is appreciated on CT study of the abdomen and pelvis. Diagnostic code #3 --- Addendum1 signed ---
[2020-07-09] MEDS ORDERED: oxyCODONE 5 MG Tab PO PRN (13:41)
[2020-07-09] MEDS ORDERED: Hydrocortisone Sodium Succinate 100 MG/2 ML SDV IVPUSH ONE (13:42)
[2020-07-09] MEDS ORDERED: Docusate Sodium 100 MG Cap PO PRN (13:44)
[2020-07-09] MEDS ORDERED: Lactated Ringers 1,000 ML IV SCH (13:45)
[2020-07-09] MEDS ORDERED: Ondansetron 4 MG Tab.DIS PO PRN (13:45)
--- NOTE | 2020-07-09 14:00 | PCM.HP.2 ---
H&P History of Present Illness - General Date of Service: 07/09/20 Admit Problem/Dx: Admission Diagnosis/Problem Admission Diagnosis/Problem Colitis Source of Information: Patient History Limitations: Reports: No Limitations - History of Present Illness Initial Comments - Free Text/Narative: Mrs. Beckford is a 34 yo woman who presents to the emergency room today with abdominal pain. The pain started about 24 hours ago. She has never had pain like this before. It started out mild, like a muscle cramp, in the right lower quadrant and has gotten progressively more severe. She has associated nausea but no vomiting. She reports chills and malaise preceding the pain. She last had a bowel movement this morning which was normal. She ate some grapes for breakfast but did not have much appetite. On review, she describes issues with arthritis, primarily in the knees, hips, a nd fingers. Her father had ulcerative colitis and what sounds like primary sclerosing cholangitis as he is s/p colectomy and liver transplant. She also has Nneka thyroiditis which her paternal grandmother has. Otherwise, there is no family history of inflammatory bowel disease or autoimmune disease. The patient only takes venlafaxine for medication. She underwent bilateral prophylactic mastectomy and hysterectomy with salpingo- oophorectomy due to BRCA-1 gene mutation. In the ER, she is in no acute distress and vitals are normal. Lab work is unremarkable, with no evidence of active inflammation. Her CT scan with IV contrast shows evidence of segmental colitis at the hepatic flexure with moderate amount of free fluid in the pelvis. The appendix is seen and appears normal. Right Abdomen Pain Score (Numeric/FACES): 6 - Related Data Allergies/Adverse Reactions: Allergies Allergy/AdvReac Type Severity Reaction Status Date / Time No Known Allergies Allergy Verified 07/09/20 10:41 Home Medications: Home Meds Venlafaxine HCl [Venlafaxine ER] 150 mg PO DAILY 07/18/19 [History] Past Medical History - Past Health History Medical/Surgical History: Denies Medical/Surgical History HEENT History: Reports: Impaired Vision, Other (See Below) Other HEENT History: dry eyes, wears glasses Cardiovascular History: Reports: None Respiratory History: Reports: None Gastrointestinal History: Reports: None Genitourinary History: Reports: None [employer] History: Reports: Musculoskeletal History: Reports: Back Pain, Chronic, Other (See Below) Other Musculoskeletal History: leg weakness Neurological History: Reports: Other (See Below) Other Neuro History: dizziness Psychiatric History: Reports: None Endocrine/Metabolic History: Reports: Vitamin D Deficiency, Other (See Below) Other Endocrine/Metabolic History: thyroid nodule, hashimotos Hematologic History: Reports: None Immunologic History: Reports: None Oncologic (Cancer) History: Reports: Other (See Below) Other Oncologic History: BRCA + Dermatologic History: Reports: Other (See Below) Other Dermatologic History: cystic acne, rash - Past Surgical History HEENT Surgical History: Reports: Oral Surgery Female Surgical History: Reports: Hysterectomy Social & Family History - Tobacco Use Tobacco Use Status *Q: Never Tobacco User Second Hand Smoke Exposure: No - Caffeine Use Caffeine Use: Reports: Tea - Recreational Drug Use Recreational Drug Use: No - Living Situation & Occupation Living situation: Reports: Occupation: Employed H&P Review of Systems - Review of Systems: Review Of Systems: See Below General: Reports: Chills, Malaise HEENT: Reports: No Symptoms Pulmonary: Reports: No Symptoms Cardiovascular: Reports: No Symptoms Gastrointestinal: Reports: Abdominal Pain, Anorexia, Decreased Appetite, Nausea Genitourinary: Reports: No Symptoms Musculoskeletal: Reports: Joint Pain Skin: Reports: No Symptoms Psychiatric: Reports: No Symptoms Neurological: Reports: No Symptoms Hematologic/Lymphatic: Reports: No Symptoms Immunologic: Reports: No Symptoms Exam - Exam Exam: See Below - Vital Signs Vital Signs: Last Vital Signs Temp 36.7 C 07/09/20 10:37 Pulse 77 07/09/20 10:37 Resp 14 07/09/20 10:37 BP 122/89 07/09/20 10:37 Pulse Ox 98 07/09/20 10:37 Weight: 63.957 kg - Exam General: Alert, Oriented, Cooperative HEENT: Conjunctiva Clear Neck: Trachea Midline Lungs: Clear to Auscultation, Normal Respiratory Effort Cardiovascular: Regular Rate, Regular Rhythm GI/Abdominal Exam: Soft, No Distention, Tender, Other (pain refers to right lowe r quadrant. No palpable mass, guarding, or rebound. ) Rectal (Female) Exam: Deferred Extremities: Normal Inspection Skin: Warm, Dry Neuro Extensive - Mental Status: Alert, Oriented x3 Psychiatric: Normal Mood - Patient Data Lab Results Last 24 hrs: Laboratory Results - last 24 hr 07/09/20 07/09/20 07/09/20 Range/Units 11:01 11:01 11:23 WBC 7.47 (3.98-10.04) K/mm3 RBC 5.30 H (3.98-5.22) M/mm3 Hgb 15.2 (11.2-15.7) gm/dl Hct 45.5 H (34.1-44.9) % MCV 85.8 (79.4-94.8) fl MCH 28.7 (25.6-32.2) pg MCHC 33.4 (32.2-35.5) g/dl RDW Std Deviation 38.2 (36.4-46.3) fL Plt Count 284 (182-369) K/mm3 MPV 8.8 L (9.4-12.3) fl Neut % (Auto) 67.9 (34.0-71.1) % Lymph % (Auto) 21.7 (19.3-51.7) % [place] % (Auto) 10.3 (4.7-12.5) % Eos % (Auto) 0 L (0.7-5.8) Baso % (Auto) 0.0 L (0.1-1.2) % Neut # (Auto) 5.07 (1.56-6.13) K/mm3 Lymph # (Auto) 1.62 (1.18-3.74) K/mm3 [place] # (Auto) 0.77 H (0.24-0.36) K/mm3 Eos # (Auto) 0.00 L (0.04-0.36) K/mm3 Baso # (Auto) 0.00 L (0.01-0.08) K/mm3 Sodium 143 (136-145) mEq/L Potassium 4.4 (3.5-5.1) mEq/L Chloride 104 (98-107) mEq/L Carbon Dioxide 30 (21-32) mEq/L Anion Gap 13.4 (5-15) BUN 11 (7-18) mg/dL Creatinine 0.8 (0.55-1.02) mg/dL Est Cr Clr Drug Dosing 95.45 mL/min Estimated GFR (MDRD) > 60 (>60) mL/min BUN/Creatinine Ratio 13.8 L (14-18) Glucose 86 (74-106) mg/dL Calcium 9.2 (8.5-10.1) mg/dL Total Bilirubin 0.5 (0.2-1.0) mg/dL AST 19 (15-37) U/L ALT 33 (14-59) U/L Alkaline Phosphatase 98 (46-116) U/L C-Reactive Protein 0.9 (<1.0) mg/dL Total Protein 7.8 (6.4-8.2) g/dl Albumin 4.2 (3.4-5.0) g/dl Globulin 3.6 gm/dL Albumin/Globulin Ratio 1.2 (1-2) Urine Color Light yellow (Yellow) Urine Appearance Slt cloudy H (Clear) Urine pH 8.0 (5.0-8.0) Ur Specific [place] 1.020 (1.005-1.030) Urine Protein Negative (Negative) Urine Glucose (UA) Negative (Negative) Urine Ketones Negative (Negative) Urine Occult Blood Negative (Negative) Urine Nitrite Negative (Negative) Urine Bilirubin Negative (Negative) Urine Urobilinogen 0.2 (0.2-1.0) Ur Leukocyte Esterase Negative (Negative) Result Diagrams: 07/09/20 11:01 07/09/20 11:01 Sepsis Event Note - Evaluation Sepsis Screening Result: No Definite Risk - Focused Exam Vital Signs: Vital Signs Temp Pulse Resp BP Pulse Ox 07/09/20 10:37 36.7 C 77 14 122/89 98 Problem List Initiated/Reviewed/Updated: Yes Orders Last 24hrs: Active Orders 24 hr Category Date Time Status Admission Status [Patient Status] [ADT] Routine ADT 07/09/20 13:38 Active Activity as Tolerated [RC] .Routine Care 07/09/20 13:41 Ordered Antiembolic Devices [RC] PER UNIT ROUTINE Care 07/09/20 13:41 Ordered Oxygen Therapy [RC] PRN Care 07/09/20 13:41 Ordered RT Incentive Spirometry [RC] Q1HWA Care 07/09/20 13:41 Ordered Vital Signs [RC] Q8H Care 07/09/20 13:41 Ordered Clear Liquid Diet [DIET] Diet 07/09/20 Breakfast Ordered BASIC METABOLIC PANEL,BMP [CHEM] AM Lab 07/10/20 05:11 Ordered CBC WITH AUTO DIFF [HEME] AM Lab 07/10/20 05:11 Ordered CORONAVIRUS COVID-19 MAYLIN [MOLEC] Stat Lab 07/09/20 13:53 Ordered Acetaminophen [TylenoL] Med 07/09/20 13:45 Ordered 975 mg PO Q8H Docusate Sodium [Colace] Med 07/09/20 13:44 Ordered 100 mg PO DAILY PRN Lactated Ringers @ 100 MLS/HR(1000ml Bag) Med 07/09/20 13:45 Ordered Lactated Ringers [Ringers, Lactated] 1,000 ml IV ASDIRECTED Ondansetron [Zofran ODT] Med 07/09/20 13:45 Ordered 4 mg PO Q6H PRN Sodium Chloride 0.9% [Normal Saline] 1,000 ml Med 07/09/20 11:00 Active IV ASDIRECTED Sodium Chloride 0.9% [Saline Flush] Med 07/09/20 10:54 Active 10 ml FLUSH ASDIRECTED PRN Sodium Chloride 0.9% [Saline Flush] Med 07/09/20 11:02 Active 10 ml FLUSH ONETIME PRN Venlafaxine [Effexor XR] Med 07/10/20 09:00 Ordered 150 mg PO DAILY levoFLOXacin [Levaquin] Med 07/09/20 13:45 Ordered 750 mg PO Q24H metroNIDAZOLE [Flagyl] Med 07/09/20 13:45 Ordered 500 mg PO Q8H oxyCODONE Med 07/09/20 13:41 Ordered 5 mg PO Q4H PRN predniSONE Med 07/09/20 14:00 Ordered 30 mg PO DAILY Saline Lock Insert [OM.PC] Stat Oth 07/09/20 10:54 Ordered Sequential Compression Device [OM.PC] Routine Oth 07/09/20 13:41 Ordered Resuscitation Status Routine Resus Stat 07/09/20 13:41 Ordered Medication Orders Acetaminophen (Tylenol) 975 mg PO Q8H KIRSTEN Docusate Sodium (Colace) 100 mg PO DAILY PRN PRN Reason: Constipation Sodium Chloride (Normal Saline) 1,000 mls @ 150 mls/hr IV ASDIRECTED KIRSTEN Last Admin: 07/09/20 11:11 Dose: 150 mls/hr Documented by: MATLBIL Lactated Ringer's (Ringers, Lactated) 1,000 mls @ 100 mls/hr IV ASDIRECTED KIRSTEN Levofloxacin (Levaquin) 750 mg PO Q24H KIRSTEN Metronidazole (Flagyl) 500 mg PO Q8H [facility] Ondansetron HCl (Zofran Odt) 4 mg PO Q6H PRN PRN Reason: Nausea/Vomiting Oxycodone HCl (Oxycodone) 5 mg PO Q4H PRN PRN Reason: Pain (moderate 4-6) Prednisone (Prednisone) 30 mg PO DAILY [facility] Sodium Chloride (Saline Flush) 10 ml FLUSH ASDIRECTED PRN PRN Reason: Keep Vein Open Sodium Chloride (Saline Flush) 10 ml FLUSH ONETIME PRN PRN Reason: IV FLUSH Last Admin: 07/09/20 11:33 Dose: 10 ml Documented by: Admin: 07/09/20 11:13 Dose: 10 ml Documented by: LILY Venlafaxine HCl (Effexor Xr) 150 mg PO DAILY [facility] Assessment/Plan Comment:: History and exam findings raise concern for inflammatory bowel disease. The appendix appears normal, and there is no adnexa present to otherwise explain pelvic free fluid seen on CT. Given the patient's tenderness on exam, we will plan to admit to observation and start treatment for presumed inflammatory bowel disease including prednisone and levofloxacin and metronidazole. -oxycodone prn pain, with scheduled tylenol -IS, OOB -LR @ 100 cc/hr -100 mg IV hydrocortisone now, start prednisone 30 mg po daily -750 levofloxacin po daily with 500 mg metronidazole po tid -SCD for dvt ppx -clear liquid diet for now -repeat labs in AM -on discharge, patient will need set up for colonoscopy and referral to gastroenterology if diagnosis is most likely inflammatory bowel disease. - Mortality Measure Prognosis:: Good
[2020-07-09] MEDS: Acetaminophen 325 MG Tab PO SCH ×2 (14:54→21:00)
[2020-07-09] MEDS: predniSONE 10 MG Tab PO SCH (15:39)
[2020-07-09] MEDS: metroNIDAZOLE 500 MG Tab PO SCH ×2 (15:39→21:01)
[2020-07-09] MEDS: Levofloxacin 750 MG Tab PO SCH (15:46)
[2020-07-10] MEDS: Acetaminophen 325 MG Tab PO SCH ×2 (05:34→16:04)
[2020-07-10] MEDS: metroNIDAZOLE 500 MG Tab PO SCH ×2 (05:35→16:05)
[2020-07-10] MEDS ORDERED: D5 1/2 NS w/ 20 mEq/L KCl 1,000 ML IV SCH (08:45)
--- NOTE | 2020-07-10 08:46 | PCM.SN.2 ---
- Free Text/Narrative Note: Hospital day #2 admitted with right lower quadrant pain and finding of mild segmental colitis on CT scan Started on prednisone and levo/flagyl S: feeling much better, but still with right lower quadrant pain. No nausea. Passing flatus, had normal bowel movement this morning. O: AF-VSS labs reviewed, essentially unchanged but increased relative neutrophilia Awake and alert, no distress breathing comfortably on room air abdomen soft, not distended, no mass. Quite tender at [place] point with referred pain to RLQ when palpating other quadrants Skin warm, dry A: Abdominal pain, RLQ, with suspicion for inflammatory bowel disease given family history and CT findings. However, appendicitis remains on the differential. Symptoms improved since starting antibiotics and steroids. P: Repeat CT scan abdomen/pelvis with contrast to assess interval change and help rule out appendicitis Continue current therapies, reassess this afternoon
[2020-07-10] MEDS ORDERED: Sodium Chloride 0.9% 10 ML Syringe FLUSH PRN (08:49)
[2020-07-10] MEDS ORDERED: Diatrizoate Meglumine/Diatrizoate Sodium 37% 120 ML Bottle PO ONE (08:49)
[2020-07-10] MEDS ORDERED: Iopamidol 612 MG/ML 100 ML Bottle IVPUSH ONE (08:49)
[2020-07-10] MEDS ORDERED: Venlafaxine 75 MG Cap.ER PO SCH (09:00)
[2020-07-10] MEDS: predniSONE 10 MG Tab PO SCH (09:34)
--- NOTE | 2020-07-10 10:26 | CT ---
CT abdomen and pelvis Technique: Multiple axial sections were obtained from above the dome of the diaphragm inferiorly through the pubic symphysis. Intravenous and oral contrast was utilized. Reconstructed coronal and sagittal images were obtained. Comparison: Prior CT abdomen and pelvis exam of 07/09/20. Findings: Visualized lung bases show nothing acute. Liver contains no focal parenchymal abnormality. Spleen appears within normal limits. Adrenal glands show no nodule. Pancreas shows no discrete abnormality. Kidneys show symmetric contrast enhancement with no hydronephrosis or mass being seen. Gallbladder shows some increased density presumably due to sludge. Abdominal aorta shows no aneurysm. No retroperitoneal adenopathy is appreciated. Appendix is seen which is normal in size. No inflammatory change is seen around the appendix. Questionable wall thickening is noted within the transverse colon and hepatic flexure. Slight scattered diverticuli are seen. Fluid is again noted within the pelvis which appears slightly increased from prior exam and is mildly prominent in amount. No additional abnormality is appreciated. Bone window settings were reviewed which show no discrete osseous abnormality. Impression: 1. Possible mild wall thickening within the transverse colon and hepatic flexure. Mild amount of colitis is a possibility. This is similar to previous exam. 2. No findings of appendicitis are seen. 3. Sludge within the gallbladder. 4. Increased free fluid within the pelvis which has slightly increased in amount from previous exam. Etiology of this is not appreciated on this exam. Diagnostic code #3
--- NOTE | 2020-07-10 15:55 | PCM.DCSUM1 ---
Discharge Summary - Hospital Course Free Text/Narrative:: Admitted yesterday with right lower quadrant pain and imaging showing segmental inflammatory change around the proximal transverse colon and free fluid in pelvis. Patient was started on prednisone and antibiotics given family history and findings suggesting inflammatory bowel disease as the likely diagnosis. Today she felt better but still had some tenderness, and a repeat CT scan was ordered to better rule out appendicitis. The scan showed a normal appendix and otherwise no significant interval change. By the end of the day she was feeling much better and tolerating a regular diet. She was passing flatus and had a bowel movement. She was deemed fit for discharge to home at that time with plan for close follow up in clinic next week. Diagnosis: Stroke: No - Discharge Data Discharge Date: 07/10/20 Discharge Disposition: Home, Self-Care 01 Condition: Good - Referral to Home Health Primary Care Physician: Josef Hawthorne MD - Patient Instructions Diet: Usual Diet as Tolerated Notify Provider of: Fever, Increased Pain, Nausea and/or Vomiting - Discharge Plan *PRESCRIPTION DRUG MONITORING PROGRAM REVIEWED*: Not Applicable *COPY OF PRESCRIPTION DRUG MONITORING REPORT IN PATIENT BROCK: Not Applicable Prescriptions/Med Rec: Levofloxacin 750 mg PO DAILY #7 tablet metroNIDAZOLE [Metronidazole] 500 mg PO Q8H #21 tablet predniSONE [Prednisone] 30 mg PO DAILY #7 tablet Home Medications: Home Meds Venlafaxine HCl [Venlafaxine ER] 150 mg PO DAILY 07/18/19 [History] Levofloxacin 750 mg PO DAILY #7 tablet 07/10/20 [Rx] metroNIDAZOLE [Metronidazole] 500 mg PO Q8H #21 tablet 07/10/20 [Rx] predniSONE [Prednisone] 30 mg PO DAILY #7 tablet 07/10/20 [Rx] Oxygen Therapy Mode: Room Air Forms: ED Department Discharge Referrals: Josef Hawthorne MD [Primary Care Provider] - - Discharge Summary/Plan Comment DC Time >30 min.: No - Patient Data Vitals - Most Recent: Last Vital Signs Temp 37.0 C 07/10/20 14:40 Pulse 52 L 07/10/20 14:40 Resp 14 07/10/20 14:40 BP 103/67 07/10/20 14:40 Pulse Ox 96 07/10/20 14:40 Weight - Most Recent: 63.911 kg I&O - Last 24 hours: Intake & Output 03/09/2507/10/20 07/10/20 06:59 14:59 22:59 Intake Total 1170 1100 Output Total 550 1020 Balance 620 80 Lab Results - Last 24 hrs: Laboratory Results - last 24 hr 07/10/20 07/10/20 Range/Units 05:53 05:53 WBC 7.55 (3.98-10.04) K/mm3 RBC 5.14 (3.98-5.22) M/mm3 Hgb 14.5 (11.2-15.7) gm/dl Hct 43.7 (34.1-44.9) % MCV 85.0 (79.4-94.8) fl MCH 28.2 (25.6-32.2) pg MCHC 33.2 (32.2-35.5) g/dl RDW Std Deviation 36.9 (36.4-46.3) fL Plt Count 294 (182-369) K/mm3 MPV 9.2 L (9.4-12.3) fl Neut % (Auto) 82.3 H (34.0-71.1) % Lymph % (Auto) 11.4 L (19.3-51.7) % [place] % (Auto) 6.2 (4.7-12.5) % Eos % (Auto) 0 L (0.7-5.8) Baso % (Auto) 0.0 L (0.1-1.2) % Neut # (Auto) 6.21 H (1.56-6.13) K/mm3 Lymph # (Auto) 0.86 L (1.18-3.74) K/mm3 [place] # (Auto) 0.47 H (0.24-0.36) K/mm3 Eos # (Auto) 0.00 L (0.04-0.36) K/mm3 Baso # (Auto) 0.00 L (0.01-0.08) K/mm3 Sodium 142 (136-145) mEq/L Potassium 4.3 (3.5-5.1) mEq/L Chloride 105 (98-107) mEq/L Carbon Dioxide 28 (21-32) mEq/L Anion Gap 13.3 (5-15) BUN 11 (7-18) mg/dL Creatinine 0.8 (0.55-1.02) mg/dL Est Cr Clr Drug Dosing 95.45 mL/min Estimated GFR (MDRD) > 60 (>60) mL/min BUN/Creatinine Ratio 13.8 L (14-18) Glucose 119 H (74-106) mg/dL Calcium 9.0 (8.5-10.1) mg/dL Med Orders - Current: Current Medications Acetaminophen (Tylenol) 975 mg PO Q8H [facility] Last Admin: 07/10/20 05:34 Dose: 975 mg Documented by: Docusate Sodium (Colace) 100 mg PO DAILY PRN PRN Reason: Constipation Potassium Chloride/Dextrose/Sod Cl (D5 1/2 Ns W/ 20 Meq/L Kcl) 1,000 mls @ 75 mls/hr IV ASDIRECTED [facility] Levofloxacin (Levaquin) 750 mg PO Q24H [facility] Last Admin: 07/09/20 15:46 Dose: 750 mg Documented by: Metronidazole (Flagyl) 500 mg PO Q8H [facility] Last Admin: 07/10/20 05:35 Dose: 500 mg Documented by: Ondansetron HCl (Zofran Odt) 4 mg PO Q6H PRN PRN Reason: Nausea/Vomiting Oxycodone HCl (Oxycodone) 5 mg PO Q4H PRN PRN Reason: Pain (moderate 4-6) Prednisone (Prednisone) 30 mg PO DAILY [facility] Last Admin: 07/10/20 09:34 Dose: 30 mg Documented by: Sodium Chloride (Saline Flush) 10 ml FLUSH ASDIRECTED PRN PRN Reason: Keep Vein Open Venlafaxine HCl (Effexor Xr) 150 mg PO DAILY [facility] [place] Last Admin: 07/10/20 09:34 Dose: 150 mg Documented by: Discontinued Medications Diatrizoate Meglum/Diatrizoate Sod (Gastrografin 37%) 120 ml PO ONETIME ONE Stop: 07/10/20 08:50 Last Admin: 07/10/20 09:58 Dose: 45 ml Documented by: Hydrocortisone Sodium Succinate (Solu-Cortef) 100 mg IVPUSH ONETIME ONE Stop: 07/09/20 13:43 Last Admin: 07/09/20 14:58 Dose: 100 mg Documented by: Hydromorphone HCl (Dilaudid) 0.5 mg IVPUSH ONETIME ONE Stop: 07/09/20 10:55 Last Admin: 07/09/20 11:12 Dose: 0.5 mg Documented by: Hydromorphone HCl (Dilaudid) 0.5 mg IVPUSH ONETIME ONE Stop: 07/09/20 12:42 Last Admin: 07/09/20 13:16 Dose: 0.5 mg Documented by: Hydromorphone HCl (Dilaudid) 0.5 mg IVPUSH ONETIME ONE Stop: 07/09/20 14:45 Last Admin: 07/09/20 14:52 Dose: 0.5 mg Documented by: Sodium Chloride (Normal Saline) 1,000 mls @ 150 mls/hr IV ASDIRECTED [facility] [place] Last Admin: 07/09/20 11:11 Dose: 150 mls/hr Documented by: Lactated Ringer's (Ringers, Lactated) 1,000 mls @ 100 mls/hr IV ASDIRECTED [facility] [place] Last Admin: 07/09/20 16:47 Dose: 100 mls/hr Documented by: Iopamidol (Isovue-300 (61%)) 100 ml IVPUSH ONETIME ONE Stop: 07/09/20 11:03 Last Admin: 07/09/20 11:33 Dose: 100 ml Documented by: Iopamidol (Isovue-300 (61%)) 100 ml IVPUSH ONETIME ONE Stop: 07/10/20 08:50 Last Admin: 07/10/20 09:58 Dose: 100 ml Documented by: Ondansetron HCl (Zofran) 4 mg IVPUSH ONETIME ONE Stop: 07/09/20 10:58 Last Admin: 07/09/20 11:12 Dose: 4 mg Documented by: Sodium Chloride (Saline Flush) 10 ml FLUSH ONETIME PRN PRN Reason: IV FLUSH Last Admin: 07/09/20 11:33 Dose: 10 ml Documented by: Sodium Chloride (Saline Flush) 10 ml FLUSH ONETIME PRN PRN Reason: IV FLUSH Stop: 07/10/20 18:00 Last Admin: 07/10/20 09:58 Dose: 10 ml Documented by:
[2020-07-10] MEDS: Levofloxacin 750 MG Tab PO SCH (16:05)
== END 2020-07-10 16:42 | disposition home or self-care (01) ==
LOC: JD.ED 10:23 → JD.MS 13:38
PROVIDERS: ADMIT Surgery; ATTEND Surgery
DX: R10.31 Right lower quadrant pain (principal); K82.8 Other specified diseases of gallbladder; E06.3 Autoimmune thyroiditis; Z20.822 Contact with and (suspected) exposure to COVID-19; Z87.39 Personal history of other diseases of the musculoskeletal system and connective tissue; Z90.13 Acquired absence of bilateral breasts and nipples; Z90.710 Acquired absence of both cervix and uterus; Z79.899 Other long term (current) drug therapy; Z83.79 Family history of other diseases of the digestive system; Z98.890 Other specified postprocedural states
CPT/HCPCS: 36415; 74177; 80048; 80053; 81003; 85025; 86140; 87635; A9270; J1170; J1720; J2405; J7030; J7120; J7512; Q9967; 96374; 96375; 96376; 99284; 99285-25; G0378; U0002

== ENCOUNTER 2020-08-02 09:55 | Observation (INO) | payer BC ==
[2020-08-02] MEDS ORDERED: Sodium Chloride 0.9% 1,000 ML IV ONE (11:37)
[2020-08-02] MEDS ORDERED: Sodium Chloride 0.9% 10 ML Syringe FLUSH PRN ×2 (11:37→12:18)
[2020-08-02] MEDS ORDERED: Iopamidol 612 MG/ML 100 ML Bottle IVPUSH ONE (12:18)
--- NOTE | 2020-08-02 12:34 | EDM.PDOC ---
ED HPI GENERAL MEDICAL PROBLEM - General Chief Complaint: Gastrointestinal Problem Stated Complaint: LOWER ABDOMINAL PAIN Time Seen by Provider: 08/02/20 10:10 Source of Information: Reports: Patient History Limitations: Reports: No Limitations - History of Present Illness INITIAL COMMENTS - FREE TEXT/NARRATIVE: The patient presents with abdominal pain, nausea and diarrhea. She was admitted to the hospital last week for possible inflammatory bowel disease such as Crohn's or ulcerative colitis. She was given some antibiotics and a taper of steroids. She went home feeling fine but a couple days ago started having pain, nausea and diarrhea. The pain is more in her right lower abdomen. She has no fever, chills, cough, chest pain, or shortness of breath. She is scheduled for a colonoscopy on August 06. Onset: Gradual Duration: Day(s): Location: Reports: Abdomen Quality: Reports: Sharp Severity: Moderate Improves with: Reports: None Worsens with: Reports: None Associated Symptoms: Reports: Nausea/Vomiting. Denies: Chest Pain, Cough, Fever/Chills, Headaches, Shortness of Breath Lower Abdomen Pain Score (Numeric/FACES): 5 - Related Data Allergies Allergy/AdvReac Type Severity Reaction Status Date / Time No Known Allergies Allergy Verified 07/09/20 10:41 Home Meds: Home Meds Venlafaxine HCl [Venlafaxine ER] 150 mg PO DAILY 07/18/19 [History] predniSONE [Prednisone] 10 mg PO DAILY 08/02/20 [History] Past Medical History - Past Health History Medical/Surgical History: Denies Medical/Surgical History HEENT History: Reports: Impaired Vision, Other (See Below) Other HEENT History: dry eyes, wears glasses, 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 Cardiovascular History: Reports: None Respiratory History: Reports: None Gastrointestinal History: Reports: Other (See Below) Other Gastrointestinal History: colitis Genitourinary History: Reports: None, Urinary Incontinence FIELD [employer] BASIC History: Reports: , Other (See Below) Other FIELD ARTILLERY BASIC History: removal ovaries, fallopian tubes, cervix, uterus Musculoskeletal History: Reports: Back Pain, Chronic, Other (See Below) Other Musculoskeletal History: leg weakness Neurological History: Reports: Other (See Below) Other Neuro History: dizziness Psychiatric History: Reports: None Endocrine/Metabolic History: Reports: Vitamin D Deficiency, Other (See Below) Other Endocrine/Metabolic History: thyroid nodule, hashimotos Hematologic History: Reports: None Immunologic History: Reports: None Oncologic (Cancer) History: Reports: Other (See Below) Other Oncologic History: BRCA + Dermatologic History: Reports: Other (See Below) Other Dermatologic History: cystic acne, rash - Infectious Disease History Infectious Disease History: Reports: Chicken Pox - Past Surgical History Head Surgeries/Procedures: Reports: None HEENT Surgical History: Reports: Other (See Below) Other HEENT Surgeries/Procedures: wisdom tooth extraction Cardiovascular Surgical History: Reports: None Respiratory Surgical History: Reports: None GI Surgical History: Reports: None Female Surgical History: Reports: Hysterectomy Endocrine Surgical History: Reports: None Oncologic Surgical History: Reports: Mastectomy Other Oncologic Surgeries/Procedures: bilateral mastectomy Dermatological Surgical History: Reports: None Social & Family History - Tobacco Use Tobacco Use Status *Q: Never Tobacco User Second Hand Smoke Exposure: No - Caffeine Use Caffeine Use: Reports: None - Recreational Drug Use Recreational Drug Use: No - Living Situation & Occupation Living situation: Reports: Occupation: Employed ED ROS GENERAL - Review of Systems Review Of Systems: See Below Constitutional: Reports: No Symptoms HEENT: Reports: No Symptoms Respiratory: Reports: No Symptoms Cardiovascular: Reports: No Symptoms Endocrine: Reports: No Symptoms GI/Abdominal: Reports: Abdominal Pain, Nausea. Denies: Vomiting : Reports: No Symptoms Musculoskeletal: Reports: No Symptoms ED EXAM, GI/ABD - Physical Exam Exam: See Below Exam Limited By: No Limitations General Appearance: Alert, No Apparent Distress Ears: Normal External Exam Nose: Normal Inspection Head: Atraumatic, Normocephalic Neck: Normal Inspection Respiratory/Chest: No Respiratory Distress, Lungs Clear, Normal Breath Sounds Cardiovascular: Regular Rate, Rhythm, No Edema, No Murmur GI/Abdominal Exam: Soft, No Organomegaly, No Mass, Tender (Moderate tenderness to the right lower abdomen) Extremities: Normal Inspection Neurological: Alert, Oriented, No Motor/Sensory Deficits Course - Vital Signs Last Recorded V/S: Last Vital Signs Temp 98.2 F 08/02/20 10:02 Pulse 93 08/02/20 10:02 Resp 16 08/02/20 10:02 BP 111/80 08/02/20 10:02 Pulse Ox 97 08/02/20 10:02 - Orders/Labs/Meds Orders: Active Orders 24 hr Category Date Time Status Peripheral IV Care [RC] . DIRECTED Care 08/02/20 11:37 Active C DIFFICILE TOXIN IMMUNOASSAY [MREF] Stat Lab 08/02/20 13:00 Received CORONAVIRUS COVID-19 MAYLIN [MOLEC] Stat Lab 08/02/20 14:00 Received STOOL CULTURE/SHIGA TOXIN [MREF] Stat Lab 08/02/20 13:00 Received Sodium Chloride 0.9% [Saline Flush] Med 08/02/20 11:37 Active 10 ml FLUSH ASDIRECTED PRN Sodium Chloride 0.9% [Saline Flush] Med 08/02/20 12:18 Active 10 ml FLUSH ONETIME PRN Vancomycin [Vancocin 125 MG Capsule] Med 08/02/20 17:00 Ordered 125 mg PO QID Peripheral IV Insertion Adult [OM.PC] Routine Oth 08/02/20 11:37 Ordered Medication Orders Sodium Chloride (Sodium Chloride 0.9% 10 Ml Syringe) 10 ml FLUSH ASDIRECTED PRN PRN Reason: Keep Vein Open Last Admin: 08/02/20 11:45 Dose: 10 ml Documented by: AGATHA Sodium Chloride (Sodium Chloride 0.9% 10 Ml Syringe) 10 ml FLUSH ONETIME PRN PRN Reason: IV FLUSH Last Admin: 08/02/20 12:29 Dose: 10 ml Documented by: RODRIGO Vancomycin HCl (Vancomycin 125 Mg Cap) 125 mg PO QID [facility] Labs: Laboratory Tests 08/02/20 08/02/20 08/02/20 Range/Units 10:33 10:33 10:33 WBC 19.36 H (3.98-10.04) K/mm3 RBC 4.88 (3.98-5.22) M/mm3 Hgb 14.0 (11.2-15.7) gm/dl Hct 42.2 (34.1-44.9) % MCV 86.5 (79.4-94.8) fl MCH 28.7 (25.6-32.2) pg MCHC 33.2 (32.2-35.5) g/dl RDW Std Deviation 40.9 (36.4-46.3) fL Plt Count 233 (182-369) K/mm3 MPV 8.8 L (9.4-12.3) fl Neut % (Auto) 90.7 H (34.0-71.1) % Lymph % (Auto) 3.7 L (19.3-51.7) % [place] % (Auto) 5.3 (4.7-12.5) % Eos % (Auto) 0 L (0.7-5.8) Baso % (Auto) 0.1 (0.1-1.2) % Neut # (Auto) 17.57 H (1.56-6.13) K/mm3 Lymph # (Auto) 0.71 L (1.18-3.74) K/mm3 [place] # (Auto) 1.03 H (0.24-0.36) K/mm3 Eos # (Auto) 0.00 L (0.04-0.36) K/mm3 Baso # (Auto) 0.01 (0.01-0.08) K/mm3 Manual Slide Review Abnormal smear Sodium 142 (136-145) mEq/L Potassium 3.4 L (3.5-5.1) mEq/L Chloride 103 (98-107) mEq/L Carbon Dioxide 28 (21-32) mEq/L Anion Gap 14.4 (5-15) BUN 5 L (7-18) mg/dL Creatinine 0.8 (0.55-1.02) mg/dL Est Cr Clr Drug Dosing 95.45 mL/min Estimated GFR (MDRD) > 60 (>60) mL/min BUN/Creatinine Ratio 6.3 L (14-18) Glucose 146 H (74-106) mg/dL Calcium 8.6 (8.5-10.1) mg/dL Total Bilirubin 0.7 (0.2-1.0) mg/dL AST 15 (15-37) U/L ALT 33 (14-59) U/L Alkaline Phosphatase 61 (46-116) U/L C-Reactive Protein 4.9 H* (<1.0) mg/dL Total Protein 6.8 (6.4-8.2) g/dl Albumin 3.5 (3.4-5.0) g/dl Globulin 3.3 gm/dL Albumin/Globulin Ratio 1.1 (1-2) Lipase 60 L (73-393) U/L HCG, Qual Negative (NEGATIVE) Urine Color (Yellow) Urine Appearance (Clear) Urine pH (5.0-8.0) Ur Specific [place] (1.005-1.030) Urine Protein (Negative) Urine Glucose (UA) (Negative) Urine Ketones (Negative) Urine Occult Blood (Negative) Urine Nitrite (Negative) Urine Bilirubin (Negative) Urine Urobilinogen (0.2-1.0) Ur Leukocyte Esterase (Negative) Urine RBC (0-5) /hpf Urine WBC (0-5) /hpf Ur Squamous Epith Cells (0-5) /hpf Urine Bacteria (FEW) /hpf Urine Mucus (FEW) /hpf C.difficile [id number] C. difficile Tox (PCR) 08/02/20 08/02/20 Range/Units 10:55 13:00 WBC (3.98-10.04) K/mm3 RBC (3.98-5.22) M/mm3 Hgb (11.2-15.7) gm/dl Hct (34.1-44.9) % MCV (79.4-94.8) fl MCH (25.6-32.2) pg MCHC (32.2-35.5) g/dl RDW Std Deviation (36.4-46.3) fL Plt Count (182-369) K/mm3 MPV (9.4-12.3) fl Neut % (Auto) (34.0-71.1) % Lymph % (Auto) (19.3-51.7) % [place] % (Auto) (4.7-12.5) % Eos % (Auto) (0.7-5.8) Baso % (Auto) (0.1-1.2) % Neut # (Auto) (1.56-6.13) K/mm3 Lymph # (Auto) (1.18-3.74) K/mm3 [place] # (Auto) (0.24-0.36) K/mm3 Eos # (Auto) (0.04-0.36) K/mm3 Baso # (Auto) (0.01-0.08) K/mm3 Manual Slide Review Sodium (136-145) mEq/L Potassium (3.5-5.1) mEq/L Chloride (98-107) mEq/L Carbon Dioxide (21-32) mEq/L Anion Gap (5-15) BUN (7-18) mg/dL Creatinine (0.55-1.02) mg/dL Est Cr Clr Drug Dosing mL/min Estimated GFR (MDRD) (>60) mL/min BUN/Creatinine Ratio (14-18) Glucose (74-106) mg/dL Calcium (8.5-10.1) mg/dL Total Bilirubin (0.2-1.0) mg/dL AST (15-37) U/L ALT (14-59) U/L Alkaline Phosphatase (46-116) U/L C-Reactive Protein (<1.0) mg/dL Total Protein (6.4-8.2) g/dl Albumin (3.4-5.0) g/dl Globulin gm/dL Albumin/Globulin Ratio (1-2) Lipase (73-393) U/L HCG, Qual (NEGATIVE) Urine Color Yellow (Yellow) Urine Appearance Clear (Clear) Urine pH 6.5 (5.0-8.0) Ur Specific [place] 1.010 (1.005-1.030) Urine Protein Negative (Negative) Urine Glucose (UA) Negative (Negative) Urine Ketones Negative (Negative) Urine Occult Blood 1+ H (Negative) Urine Nitrite Negative (Negative) Urine Bilirubin Negative (Negative) Urine Urobilinogen 0.2 (0.2-1.0) Ur Leukocyte Esterase Negative (Negative) Urine RBC 0-5 (0-5) /hpf Urine WBC Not seen (0-5) /hpf Ur Squamous Epith Cells 0-5 (0-5) /hpf Urine Bacteria Not seen (FEW) /hpf Urine Mucus Not seen (FEW) /hpf C.difficile [id number] Presumptive negative C. difficile Tox (PCR) Positive H Meds: Medications Generic Name Dose Route Start Last Admin Trade Name Freq PRN Reason Stop Dose Admin Sodium Chloride 10 ml 08/02/20 11:37 08/02/20 11:45 Sodium Chloride 0.9% 10 Ml Syringe FLUSH 10 ml ASDIRECTED PRN Administration Keep Vein Open Sodium Chloride 10 ml 08/02/20 12:18 08/02/20 12:29 Sodium Chloride 0.9% 10 Ml Syringe FLUSH 10 ml ONETIME PRN Administration IV FLUSH Vancomycin HCl 125 mg 08/02/20 17:00 Vancomycin 125 Mg Cap PO QID KIRSTEN Discontinued Medications Generic Name Dose Route Start Last Admin Trade Name Freq PRN Reason Stop Dose Admin Sodium Chloride 1,000 mls @ 1,000 mls/hr 08/02/20 11:37 08/02/20 11:45 Normal Saline IV 08/02/20 12:36 1,000 mls/hr ONETIME ONE Administration Iopamidol 100 ml 08/02/20 12:18 08/02/20 12:29 Iopamidol 612 Mg/Ml 100 Ml Bottle IVPUSH 08/02/20 12:19 100 ml ONETIME ONE Administration - Re-Assessments/Exams Free Text/Narrative Re-Assessment/Exam: 08/02/20 14:07 Her WBC was elevated at 19.36. Her K was 3.4. Her glucose was elevated at 146. Her CRP is elevated at 1.9. Her UA shows no UTI. I talked with Dr Sullivan and he recommended a CT of her abdomen and pelvis. 08/02/20 14:[address] shows diffuse bowel wall thickening within the colon suspicious for diffuse colitis. This has increased from prior exam. Appendix is normal in size. Nothing acute is otherwise seen on CT study of the abdomen and pelvis. I talked with Dr Sullivan and he felt we should consider transfer to [place] where they have GI. I am waiting for her stool studies. The C-dif tox is positive. I ordered vancomycin. I called Dr Sullivan and he will come see the patient and admit her. Departure - Departure Time of Disposition: 14:40 Disposition: Refer to Observation Condition: Fair Clinical Impression: C. difficile colitis - Discharge Information Referrals: Josef Hawthorne MD [Primary Care Provider] - Forms: ED Department Discharge Sepsis Event Note (ED) - Evaluation Sepsis Screening Result: No Definite Risk - Focused Exam Vital Signs: Vital Signs Temp Pulse Resp BP Pulse Ox 08/02/20 10:02 98.2 F 93 16 111/80 97 - My Orders Last 24 Hours: My Active Orders 08/02/20 11:37 Peripheral IV Care [RC] . DIRECTED Sodium Chloride 0.9% [Saline Flush] 10 ml FLUSH ASDIRECTED PRN Peripheral IV Insertion Adult [OM.PC] Routine 08/02/20 12:18 Sodium Chloride 0.9% [Saline Flush] 10 ml FLUSH ONETIME PRN 08/02/20 13:00 C DIFFICILE TOXIN IMMUNOASSAY [MREF] Stat STOOL CULTURE/SHIGA TOXIN [MREF] Stat 08/02/20 14:00 CORONAVIRUS COVID-19 MAYLIN [MOLEC] Stat 08/02/20 17:00 Vancomycin [Vancocin 125 MG Capsule] 125 mg PO QID - Assessment/Plan Last 24 Hours: My Active Orders 08/02/20 11:37 Peripheral IV Care [RC] . DIRECTED Sodium Chloride 0.9% [Saline Flush] 10 ml FLUSH ASDIRECTED PRN Peripheral IV Insertion Adult [OM.PC] Routine 08/02/20 12:18 Sodium Chloride 0.9% [Saline Flush] 10 ml FLUSH ONETIME PRN 08/02/20 13:00 C DIFFICILE TOXIN IMMUNOASSAY [MREF] Stat STOOL CULTURE/SHIGA TOXIN [MREF] Stat 08/02/20 14:00 CORONAVIRUS COVID-19 MAYLIN [MOLEC] Stat 08/02/20 17:00 Vancomycin [Vancocin 125 MG Capsule] 125 mg PO QID
--- NOTE | 2020-08-02 12:48 | PCM.CONS ---
H&P History of Present Illness - General Date of Service: 08/02/20 Admit Problem/Dx: colitis Source of Information: Patient History Limitations: Reports: No Limitations - History of Present Illness Initial Comments - Free Text/Narative: Mrs. Beckford is a patient known to me from about a month ago when she presented with right sided abdominal pain. Findings raised suspicion for inflammatory bowel disease. She was hospitalized for antibiotics and steroids for presumed initial acute flare of inflammatory bowel disease and her symptoms quickly improved. She has been on a prednisone taper and recently went down to 10 mg daily. Her pain recurred, milder in severity, Monday night. She has been having frequent bouts of diarrhea, described as yellow and mucus-like, every few hours. She is hemodynamically normal, but WBC is high at 19,[address] scan appears to me to show more widespread colitis without evidence of stricture, perforation or abscess. 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 Cardiovascular History: Reports: None Respiratory History: Reports: None Gastrointestinal History: Reports: Other (See Below) Other Gastrointestinal History: colitis Genitourinary History: Reports: None, Urinary Incontinence [employer] History: Reports: , Other (See Below) Other OB/BYN History: removal ovaries, fallopian tubes, cervix, uterus Musculoskeletal History: Reports: Back Pain, Chronic, Other (See Below) Other Musculoskeletal History: leg weakness Neurological History: Reports: Other (See Below) Other Neuro History: dizziness Psychiatric History: Reports: None Endocrine/Metabolic History: Reports: Vitamin D Deficiency, Other (See Below) Other Endocrine/Metabolic History: thyroid nodule, hashimotos Hematologic History: Reports: None Immunologic History: Reports: None Oncologic (Cancer) History: Reports: Other (See Below) Other Oncologic History: BRCA + Dermatologic History: Reports: Other (See Below) Other Dermatologic History: cystic acne, rash - Infectious Disease History Infectious Disease History: Reports: Chicken Pox - Past Surgical History Head Surgeries/Procedures: Reports: None HEENT Surgical History: Reports: Other (See Below) Other HEENT Surgeries/Procedures: wisdom tooth extraction Cardiovascular Surgical History: Reports: None Respiratory Surgical History: Reports: None GI Surgical History: Reports: None Female Surgical History: Reports: Hysterectomy Endocrine Surgical History: Reports: None Oncologic Surgical History: Reports: Mastectomy Other Oncologic Surgeries/Procedures: bilateral mastectomy Dermatological Surgical History: Reports: None Social & Family History - Tobacco Use Tobacco Use Status *Q: Never Tobacco User Second Hand Smoke Exposure: No - Caffeine Use Caffeine Use: Reports: None - Recreational Drug Use Recreational Drug Use: No - Living Situation & Occupation Living situation: Reports: Occupation: Employed H&P Review of Systems - Review of Systems: Review Of Systems: See Below General: Reports: Malaise HEENT: Reports: No Symptoms Pulmonary: Reports: No Symptoms Cardiovascular: Reports: No Symptoms Gastrointestinal: Reports: Abdominal Pain, Diarrhea Genitourinary: Reports: No Symptoms Musculoskeletal: Reports: No Symptoms Skin: Reports: No Symptoms Psychiatric: Reports: No Symptoms Neurological: Reports: No Symptoms Hematologic/Lymphatic: Reports: No Symptoms Immunologic: Reports: No Symptoms Exam - Exam Exam: See Below - Vital Signs Vital Signs: Last Vital Signs Temp 36.8 C 08/02/20 10:02 Pulse 93 08/02/20 10:02 Resp 16 08/02/20 10:02 BP 111/80 08/02/20 10:02 Pulse Ox 97 08/02/20 10:02 Weight: 62.596 kg - Exam General: Alert, Oriented, Cooperative HEENT: Conjunctiva Clear Neck: Supple, Trachea Midline Lungs: Clear to Auscultation, Normal Respiratory Effort Cardiovascular: Regular Rate, Regular Rhythm GI/Abdominal Exam: Soft, No Distention, No Mass, Tender Extremities: Normal Inspection Skin: Warm, Dry Neuro Extensive - Mental Status: Alert, Oriented x3 Psychiatric: Normal Mood - Patient Data Lab Results Last 24 hrs: Laboratory Results - last 24 hr 08/02/20 08/02/20 08/02/20 Range/Units 10:33 10:33 10:33 WBC 19.36 H (3.98-10.04) K/mm3 RBC 4.88 (3.98-5.22) M/mm3 Hgb 14.0 (11.2-15.7) gm/dl Hct 42.2 (34.1-44.9) % MCV 86.5 (79.4-94.8) fl MCH 28.7 (25.6-32.2) pg MCHC 33.2 (32.2-35.5) g/dl RDW Std Deviation 40.9 (36.4-46.3) fL Plt Count 233 (182-369) K/mm3 MPV 8.8 L (9.4-12.3) fl Neut % (Auto) 90.7 H (34.0-71.1) % Lymph % (Auto) 3.7 L (19.3-51.7) % [place] % (Auto) 5.3 (4.7-12.5) % Eos % (Auto) 0 L (0.7-5.8) Baso % (Auto) 0.1 (0.1-1.2) % Neut # (Auto) 17.57 H (1.56-6.13) K/mm3 Lymph # (Auto) 0.71 L (1.18-3.74) K/mm3 [place] # (Auto) 1.03 H (0.24-0.36) K/mm3 Eos # (Auto) 0.00 L (0.04-0.36) K/mm3 Baso # (Auto) 0.01 (0.01-0.08) K/mm3 Manual Slide Review Abnormal smear Sodium 142 (136-145) mEq/L Potassium 3.4 L (3.5-5.1) mEq/L Chloride 103 (98-107) mEq/L Carbon Dioxide 28 (21-32) mEq/L Anion Gap 14.4 (5-15) BUN 5 L (7-18) mg/dL Creatinine 0.8 (0.55-1.02) mg/dL Est Cr Clr Drug Dosing 95.45 mL/min Estimated GFR (MDRD) > 60 (>60) mL/min BUN/Creatinine Ratio 6.3 L (14-18) Glucose 146 H (74-106) mg/dL Calcium 8.6 (8.5-10.1) mg/dL Total Bilirubin 0.7 (0.2-1.0) mg/dL AST 15 (15-37) U/L ALT 33 (14-59) U/L Alkaline Phosphatase 61 (46-116) U/L C-Reactive Protein 4.9 H* (<1.0) mg/dL Total Protein 6.8 (6.4-8.2) g/dl Albumin 3.5 (3.4-5.0) g/dl Globulin 3.3 gm/dL Albumin/Globulin Ratio 1.1 (1-2) Lipase 60 L (73-393) U/L HCG, Qual Negative (NEGATIVE) Urine Color (Yellow) Urine Appearance (Clear) Urine pH (5.0-8.0) Ur Specific [place] (1.005-1.030) Urine Protein (Negative) Urine Glucose (UA) (Negative) Urine Ketones (Negative) Urine Occult Blood (Negative) Urine Nitrite (Negative) Urine Bilirubin (Negative) Urine Urobilinogen (0.2-1.0) Ur Leukocyte Esterase (Negative) Urine RBC (0-5) /hpf Urine WBC (0-5) /hpf Ur Squamous Epith Cells (0-5) /hpf Urine Bacteria (FEW) /hpf Urine Mucus (FEW) /hpf 08/02/20 Range/Units 10:55 WBC (3.98-10.04) K/mm3 RBC (3.98-5.22) M/mm3 Hgb (11.2-15.7) gm/dl Hct (34.1-44.9) % MCV (79.4-94.8) fl MCH (25.6-32.2) pg MCHC (32.2-35.5) g/dl RDW Std Deviation (36.4-46.3) fL Plt Count (182-369) K/mm3 MPV (9.4-12.3) fl Neut % (Auto) (34.0-71.1) % Lymph % (Auto) (19.3-51.7) % [place] % (Auto) (4.7-12.5) % Eos % (Auto) (0.7-5.8) Baso % (Auto) (0.1-1.2) % Neut # (Auto) (1.56-6.13) K/mm3 Lymph # (Auto) (1.18-3.74) K/mm3 [place] # (Auto) (0.24-0.36) K/mm3 Eos # (Auto) (0.04-0.36) K/mm3 Baso # (Auto) (0.01-0.08) K/mm3 Manual Slide Review Sodium (136-145) mEq/L Potassium (3.5-5.1) mEq/L Chloride (98-107) mEq/L Carbon Dioxide (21-32) mEq/L Anion Gap (5-15) BUN (7-18) mg/dL Creatinine (0.55-1.02) mg/dL Est Cr Clr Drug Dosing mL/min Estimated GFR (MDRD) (>60) mL/min BUN/Creatinine Ratio (14-18) Glucose (74-106) mg/dL Calcium (8.5-10.1) mg/dL Total Bilirubin (0.2-1.0) mg/dL AST (15-37) U/L ALT (14-59) U/L Alkaline Phosphatase (46-116) U/L C-Reactive Protein (<1.0) mg/dL Total Protein (6.4-8.2) g/dl Albumin (3.4-5.0) g/dl Globulin gm/dL Albumin/Globulin Ratio (1-2) Lipase (73-393) U/L HCG, Qual (NEGATIVE) Urine Color Yellow (Yellow) Urine Appearance Clear (Clear) Urine pH 6.5 (5.0-8.0) Ur Specific [place] 1.010 (1.005-1.030) Urine Protein Negative (Negative) Urine Glucose (UA) Negative (Negative) Urine Ketones Negative (Negative) Urine Occult Blood 1+ H (Negative) Urine Nitrite Negative (Negative) Urine Bilirubin Negative (Negative) Urine Urobilinogen 0.2 (0.2-1.0) Ur Leukocyte Esterase Negative (Negative) Urine RBC 0-5 (0-5) /hpf Urine WBC Not seen (0-5) /hpf Ur Squamous Epith Cells 0-5 (0-5) /hpf Urine Bacteria Not seen (FEW) /hpf Urine Mucus Not seen (FEW) /hpf Result Diagrams: 08/02/20 10:33 08/02/20 10:33 Sepsis Event Note - Evaluation Sepsis Screening Result: No Definite Risk - Focused Exam Vital Signs: Vital Signs Temp Pulse Resp BP Pulse Ox 08/02/20 10:02 36.8 C 93 16 111/80 97 Consult PN Assessment/Plan Procedures: Procedures ANTINUCLEAR ANTIBODIES (02/13/19) ASSAY OF CREATININE (07/19/19) ASSAY OF FREE THYROXINE (03/06/19) ASSAY OF IRON (09/07/18) ASSAY OF TRANSFERRIN (09/07/18) ASSAY OF TROPONIN QUANT (01/24/19) ASSAY THYROID STIM HORMONE (03/06/19) BLOOD TYPING SEROLOGIC ABO (07/19/19) BLOOD TYPING SEROLOGIC RH(D) (07/19/19) BREAST TOMOSYNTHESIS BI (05/21/19) C-REACTIVE PROTEIN (07/09/20) CHORIONIC GONADOTROPIN ASSAY (01/24/19) COMPLEMENT ANTIGEN (02/13/19) COMPLETE CBC AUTOMATED (03/06/19) COMPLETE CBC W/AUTO DIFF WBC (07/09/20) COMPREHEN METABOLIC PANEL (07/09/20) CREATINE MB FRACTION (01/24/19) CT ABD & PELV W/CONTRAST (07/09/20) CT ANGIOGRAPHY CHEST (01/24/19) CT NECK SPINE W/O DYE (01/24/19) CYTOMEG DNA AMP PROBE (10/17/18) DNA ANTIBODY CHEHALIS (02/13/19) ELECTROCARDIOGRAM TRACING (01/24/19) EMERGENCY DEPT VISIT (08/04/19) EMERGENCY DEPT VISIT (01/24/19) EMERGENCY DEPT VISIT (11/12/18) FREE ASSAY (FT-3) (03/06/19) HYDRATION IV INFUSION INIT (01/24/19) IMMUNOASSAY NONANTIBODY (02/13/19) IMMUNOASSAY QUANT NOS NONAB (03/06/19) IMMUNOASSAY TUMOR CA 125 (06/26/19) LAPARO-VAG HYST INCL T/O (07/19/19) LYME DISEASE ANTIBODY (10/17/18) METABOLIC PANEL TOTAL CA (07/09/20) MICROSOMAL ANTIBODY EACH (02/13/19) MRI BRAIN STEM W/O & W/DYE (11/12/18) MRI BREAST C-+ W/CAD BI (11/12/19) MRI LUMBAR SPINE W/O DYE (11/01/18) NUCLEAR ANTIGEN ANTIBODY (02/13/19) RBC ANTIBODY SCREEN (07/19/19) RBC SED RATE AUTOMATED (10/17/18) RHEUMATOID FACTOR QUANT (02/13/19) ROUTINE VENIPUNCTURE (07/09/20) SARS-COV-2 COVID-19 AMP PRB (07/09/20) SCR MAMMO BI INCL CAD (05/21/19) SMEAR WET [place] SALINE/INK (03/16/15) TOTAL CORTISOL (04/24/19) TRANSVAGINAL US NON-OB (07/02/19) ULTRASOUND BREAST LIMITED (08/05/19) URINALYSIS AUTO W/O SCOPE (07/09/20) URINALYSIS AUTO W/SCOPE (01/09/19) URINE CULTURE/COLONY COUNT (01/09/19) URINE TEST (07/19/19) US EXAM OF HEAD AND NECK (02/13/19) US EXAM PELVIC LIMITED (08/04/19) VITAMIN D 25 HYDROXY (02/04/20) X-RAY EXAM L-S SPINE 2/3 VWS (10/17/18) X-RAY EXAM OF SHOULDER (09/01/17) Problem List Initiated/Reviewed/Updated: Yes Plan: History and presentation seem to me to be most consistent with ulcerative colitis, less likely Crohn disease. Symptoms have worsened recently as prednisone has been tapered, and labs and imaging are concerning for progression of disease. She has no acute surgical needs. She had been scheduled for diagnostic colonoscopy later this week. However, given progression, I discussed option of admission and treatment with antibiotics and steroids and colonoscopy while admitted, vs transfer to center with in-house gastroenterology to establish diagnosis and longer-term treatment plan. We are in agreement on plan for transfer to center with gastroenterology services.
--- NOTE | 2020-08-02 13:00 | CT ---
CT abdomen and pelvis Technique: Multiple axial sections were obtained from above the dome of the diaphragm inferiorly through the pubic symphysis. Intravenous contrast was given. No oral contrast has been given. Reconstructed coronal and sagittal images were obtained. Comparison: Prior CT abdomen and pelvis study of 07/10/20. Findings: Visualized lung bases show nothing acute. Liver show no focal parenchymal abnormality. Spleen appears within normal limits. Adrenal glands show no nodule. Pancreas shows no discrete abnormality. Gallbladder contains no calcified gallstones. Kidneys show no abnormal calcifications. Abdominal aorta shows no aneurysm. No retroperitoneal adenopathy or mesenteric abnormalities are seen. No pelvic mass or adenopathy is appreciated. Colon shows fairly diffuse wall thickening raising the possibility of diffuse colitis. Findings have increased in amount from previous study. Appendix is seen which is normal in size. No free fluid or inflammatory change is seen. Bone window settings were reviewed which show no acute osseous finding. Impression: 1. Diffuse bowel wall thickening within the colon suspicious for diffuse colitis. This has increased from prior exam. 2. Appendix is normal in size. 3. Nothing acute is otherwise seen on CT study of the abdomen and pelvis. Diagnostic code #3
[2020-08-02] MEDS ORDERED: Vancomycin 125 MG Cap PO STA (14:43)
[2020-08-02] MEDS ORDERED: oxyCODONE 5 MG Tab PO PRN (15:03)
[2020-08-02] MEDS: Acetaminophen 325 MG Tab PO SCH (15:50)
[2020-08-02] MEDS: Lactated Ringers 1,000 ML IV SCH (15:51)
[2020-08-02] MEDS ORDERED: Vancomycin 125 MG Cap PO SCH (17:00)
[2020-08-02] MEDS: Vancomycin 125 MG Cap PO SCH (21:20)
[2020-08-03] MEDS: Acetaminophen 325 MG Tab PO SCH ×3 (01:04→16:06)
[2020-08-03] MEDS: Lactated Ringers 1,000 ML IV SCH ×3 (02:09→21:32)
[2020-08-03] MEDS: Venlafaxine 75 MG Cap.ER PO SCH (08:12)
[2020-08-03] MEDS: Vancomycin 125 MG Cap PO SCH ×4 (08:13→21:18)
--- NOTE | 2020-08-03 10:41 | PCM.SN.2 ---
- Free Text/Narrative Note: Hospital Day 2, admitted with C difficile colitis S: pain much improved, still having diarrhea O: AF-VSS WBC down from 19,000 to 9,000 Awake and alert, no distress Abdomen soft, no tenderness or distention A: C difficile colitis complicating initial picture of what looks like inflammatory bowel disease based on family history and good initial response to antibiotics and prednisone. P: Continue oral vancomycin 125 mg qid hold prednisone advance to regular diet Once diarrhea is improved, will plan for close follow up with gastroenterology for assessment and management of IBD.
[2020-08-04] MEDS: Acetaminophen 325 MG Tab PO SCH ×2 (01:13→07:56)
[2020-08-04] MEDS: Lactated Ringers 1,000 ML IV SCH (07:30)
[2020-08-04] MEDS: Venlafaxine 75 MG Cap.ER PO SCH (08:57)
[2020-08-04] MEDS: Vancomycin 125 MG Cap PO SCH (08:57)
--- NOTE | 2020-08-04 09:13 | PCM.DCSUM1 ---
Discharge Summary - Hospital Course Free Text/Narrative:: Mrs. Beckford is a 34 yo woman who was initially seen nearly a month ago with presentation and findings concerning for inflammatory bowel disease, including segmental colitis near the hepatic flexure. She was started on levofloxacin, flagyl (for a one week course) and 30 mg prednisone daily which was tapered by 10 mg each week. Just prior to going to 10 mg prednisone, she developed new frequent diarrhea and recurrent, but milder, abdominal pain. She was seen in the ER with WBC 19,000 and findings of more widespread colitis on CT. D difficile toxin test was positive and she was started on oral vancomycin 125 mg qid. Prednisone was held. She very rapidly improved, diarrhea resolved and WBC came down to normal range. She was deemed fit for discharge to home on hospital day 4. She will finish a 10 day course of vancomycin and has follow up scheduled [facility] gastro[facility]ology on 08/11/2020. Diagnosis: Stroke: No - Discharge Data Discharge Date: 08/04/20 Discharge Disposition: Home, Self-Care 01 Condition: Good - Referral to Home Health Primary Care Physician: Josef Hawthorne MD - Patient Instructions Diet: Usual Diet as Tolerated Activity: As Tolerated Showering/Bathing: May Shower Notify Provider of: Fever, Increased Pain, Nausea and/or Vomiting - Discharge Plan *PRESCRIPTION DRUG MONITORING PROGRAM REVIEWED*: Not Applicable *COPY OF PRESCRIPTION DRUG MONITORING REPORT IN PATIENT BROCK: Not Applicable Prescriptions/Med Rec: Vancomycin [Vancocin 125 MG Capsule] 125 mg PO QID #32 cap Home Medications: Home Meds Venlafaxine HCl [Venlafaxine ER] 150 mg PO DAILY 07/18/19 [History] Non-Formulary Medication [NF Drug] 1 applic TOP DAILY 08/02/20 [History] predniSONE [Prednisone] 10 mg PO DAILY 08/02/20 [History] Vancomycin [Vancocin 125 MG Capsule] 125 mg PO QID #32 cap 08/04/20 [Rx] Patient Handouts: Clostridioides Difficile Infection, Qpwa-ls-Lund Forms: ED Department Discharge Referrals: Loni Gonzales NP [Ordering Only Provider] - 08/11/20 1:00 pm (This appt. is in [place] 1 p.m. central time and with Elinor Gonzales TUFT MACHINE OPERATOR for Gastrointestinal Doctor) Lenny Sullivan MD [Physician] - Josef Hawthorne MD [Primary Care Provider] - - Discharge Summary/Plan Comment DC Time >30 min.: No - Patient Data Vitals - Most Recent: Last Vital Signs Temp 36.6 C 08/04/20 08:08 Pulse 70 08/04/20 08:08 Resp 16 08/04/20 08:08 BP 102/65 08/04/20 08:08 Pulse Ox 98 08/04/20 08:08 Weight - Most Recent: 63.458 kg I&O - Last 24 hours: Intake & Output 08/03/20 08/04/20 08/04/20 22:59 06:59 14:59 Intake Total 1820 2725 Output Total 1200 Balance 620 2725 Med Orders - Current: Current Medications Acetaminophen (Acetaminophen 325 Mg Tab) 975 mg PO Q8H [facility] Last Admin: 08/04/20 07:56 Dose: Not Given Documented by: Lactated Ringer's (Ringers, Lactated) 1,000 mls @ 100 mls/hr IV ASDIRECTED [facility] Last Admin: 08/04/20 07:30 Dose: 100 mls/hr Documented by: Oxycodone HCl (Oxycodone 5 Mg Tab) 5 mg PO Q4H PRN PRN Reason: Pain (moderate 4-6) Sodium Chloride (Sodium Chloride 0.9% 10 Ml Syringe) 10 ml FLUSH ASDIRECTED PRN PRN Reason: Keep Vein Open Last Admin: 08/02/20 11:45 Dose: 10 ml Documented by: Vancomycin HCl (Vancomycin 125 Mg Cap) 125 mg PO QID [facility] Last Admin: 08/04/20 08:57 Dose: 125 mg Documented by: Venlafaxine HCl (Venlafaxine 75 Mg Cap.Er) 150 mg PO DAILY [facility] Last Admin: 08/04/20 08:57 Dose: 150 mg Documented by: Discontinued Medications Sodium Chloride (Normal Saline) 1,000 mls @ 1,000 mls/hr IV ONETIME ONE Stop: 08/02/20 12:36 Last Admin: 08/02/20 11:45 Dose: 1,000 mls/hr Documented by: Iopamidol (Iopamidol 612 Mg/Ml 100 Ml Bottle) 100 ml IVPUSH ONETIME ONE Stop: 08/02/20 12:19 Last Admin: 08/02/20 12:29 Dose: 100 ml Documented by: Sodium Chloride (Sodium Chloride 0.9% 10 Ml Syringe) 10 ml FLUSH ONETIME PRN PRN Reason: IV FLUSH Last Admin: 08/02/20 12:29 Dose: 10 ml Documented by: Vancomycin HCl (Vancomycin 125 Mg Cap) 125 mg PO ONETIME STA Stop: 08/02/20 14:44 Last Admin: 08/02/20 14:53 Dose: 125 mg Documented by:
== END 2020-08-04 10:05 | disposition home or self-care (01) ==
LOC: JD.ED 09:55 → JD.MS 15:03
PROVIDERS: ADMIT Surgery; ATTEND Surgery
DX: A04.72 Enterocolitis due to Clostridium difficile, not specified as recurrent (principal); Z20.822 Contact with and (suspected) exposure to COVID-19; Z87.440 Personal history of urinary (tract) infections; Z79.899 Other long term (current) drug therapy; Z90.710 Acquired absence of both cervix and uterus; Z90.79 Acquired absence of other genital organ(s); Z90.722 Acquired absence of ovaries, bilateral; Z90.13 Acquired absence of bilateral breasts and nipples; Z98.890 Other specified postprocedural states
CPT/HCPCS: 36415; 74177; 80048; 80053; 81001; 83605; 83690; 84703; 85025; 86140; 87045; 87046; 87324; 87493; 87635; 87899; 99285; A9270; G0378; J7030; J7120; Q9967; 99284; U0002

== ENCOUNTER 2021-03-19 11:53 | Emergency (ER) | payer BC ==
--- NOTE | 2021-03-19 12:37 | EDM.PDOC ---
ED HPI GENERAL MEDICAL PROBLEM - General Chief Complaint: Cardiovascular Problem Stated Complaint: HEART FLUTTER Time Seen by Provider: 03/19/21 12:13 Source of Information: Reports: Patient, RN Notes Reviewed History Limitations: Reports: No Limitations - History of Present Illness INITIAL COMMENTS - FREE TEXT/NARRATIVE: Patient is a 35-year-old female who presents to the ER for evaluation of her heart palpitations. Patient states she has a history of antibodies for Nneka's thyroiditis. Patient thinks that she may have been starting to have a flare about 2 weeks ago, as her thyroid on the right side is a little bit tender, states she usually feels lethargic, body aches, no other generalized symptoms when this happens. She states over the last 3 days however she feels like her heart is fluttering or beating out of her chest. She is not having any associated pain, but may be a little bit of acute shortness of breath with this. States that the issues seem to happen more in the morning time, and the episodes last about 15 to 20 minutes each. States that sometimes she when sitting at rest and these issues, but other times it is when she is being active. Notes that coffee seems to worsen this. She states sometimes when she rests and relax, it can make it better. No real triggers and other activities that she can account for directly that you do make this worse or better. No fevers, no chills, no cough, no nausea/vomiting/diarrhea. Primary care provider is Dr. Ferguson and states that she has not had any sort of medication changes. Also states that she is not having any current palpitations. 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 had scheduled a colonoscopy for further diagnosis but is now in hospital w/ [facility]. 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 Neurological History: Reports: Other (See Below) Other Neuro History: dizziness Psychiatric History: Reports: None Endocrine/Metabolic History: Reports: Vitamin D Deficiency, Other (See Below) Other Endocrine/Metabolic History: thyroid nodule, hashimotos Hematologic History: Reports: None Immunologic History: Reports: None Oncologic (Cancer) History: Reports: Other (See Below) Other Oncologic History: BRCA 1 + Dermatologic History: Reports: Other (See Below) Other Dermatologic History: cystic acne, rash - Infectious Disease History Infectious Disease History: Reports: Chicken Pox - Past Surgical History Head Surgeries/Procedures: Reports: None HEENT Surgical History: Reports: Other (See Below) Other HEENT Surgeries/Procedures: wisdom tooth extraction Cardiovascular Surgical History: Reports: None Respiratory Surgical History: Reports: None GI Surgical History: Reports: None Female Surgical History: Reports: Hysterectomy Endocrine Surgical History: Reports: None Musculoskeletal Surgical History: Reports: None Oncologic Surgical History: Reports: Mastectomy Other Oncologic Surgeries/Procedures: bilateral mastectomy Dermatological Surgical History: Reports: None Social & Family History - Family History Family Medical History: No Pertinent Family History - Tobacco Use Tobacco Use Status *Q: Never Tobacco User Second Hand Smoke Exposure: No - Caffeine Use Caffeine Use: Reports: Coffee - Recreational Drug Use Recreational Drug Use: No - Living Situation & Occupation Living situation: Reports: Occupation: Employed ED ROS GENERAL - Review of Systems Review Of Systems: Comprehensive ROS is negative, except as noted in HPI. ED EXAM, GENERAL - Physical Exam Exam: See Below Exam Limited By: No Limitations General Appearance: Alert, WD/WN, No Apparent Distress Respiratory/Chest: No Respiratory Distress, Lungs Clear, Normal Breath Sounds, No Accessory Muscle Use, Chest Non-Tender Cardiovascular: Normal Peripheral Pulses, Regular Rate, Rhythm, No Edema Peripheral Pulses: 2+: Radial (L), Radial (R) Extremities: Normal Inspection, Normal Capillary Refill Neurological: Alert, Oriented, Normal Cognition, No Motor/Sensory Deficits Psychiatric: Normal Affect, Normal Mood Skin Exam: Warm, Dry, Intact, Normal Color, No Rash #1 Interpretation EKG Date: 03/19/21 Time: 12:19 Rhythm: NSR Rate (Beats/Min): 89 [place]: Normal P-Wave: Present QRS: Normal ST-T: Normal QT: Prolonged (borderline @490) Comparison: No Change (compared from 01/24) EKG Interpretation Comments: No obvious ischemia or acute ST changes noted, reviewed by myself and Dr. Malin. Course - Vital Signs Last Recorded V/S: Last Vital Signs Temp 97.9 F 03/19/21 12:06 Pulse 77 03/19/21 12:06 Resp 20 03/19/21 12:06 BP 123/83 03/19/21 12:06 Pulse Ox 87 L 03/19/21 12:06 - Orders/Labs/Meds Orders: Active Orders 24 hr Category Date Time Status EKG Documentation Completion [RC] ASDIRECTED Care 03/19/21 12:10 Active Holter Monitor 48 Hours [RC] .PRN Care 03/19/21 13:44 Ordered EKG 12 Lead [EK] Stat Ther 03/19/21 12:10 Ordered Labs: Laboratory Tests 03/19/21 03/19/21 Range/Units 12:26 12:26 WBC 5.40 (3.98-10.04) K/mm3 RBC 4.97 (3.98-5.22) M/mm3 Hgb 14.6 D (11.2-15.7) gm/dl Hct 43.1 (34.1-44.9) % MCV 86.7 (79.4-94.8) fl MCH 29.4 (25.6-32.2) pg MCHC 33.9 (32.2-35.5) g/dl RDW Std Deviation 38.9 (36.4-46.3) fL Plt Count 256 (182-369) K/mm3 MPV 8.9 L (9.4-12.3) fl Neut % (Auto) 55.5 (34.0-71.1) % Lymph % (Auto) 36.5 (19.3-51.7) % Elliott % (Auto) 7.8 (4.7-12.5) % Eos % (Auto) 0 L (0.7-5.8) Baso % (Auto) 0.2 (0.1-1.2) % Neut # (Auto) 3.00 (1.56-6.13) K/mm3 Lymph # (Auto) 1.97 (1.18-3.74) K/mm3 Elliott # (Auto) 0.42 H (0.24-0.36) K/mm3 Eos # (Auto) 0.00 L (0.04-0.36) K/mm3 Baso # (Auto) 0.01 (0.01-0.08) K/mm3 Sodium 143 (136-145) mEq/L Potassium 4.0 (3.5-5.1) mEq/L Chloride 104 (98-107) mEq/L Carbon Dioxide 29 (21-32) mEq/L Anion Gap 14.0 (5-15) BUN 12 (7-18) mg/dL Creatinine 0.7 (0.55-1.02) mg/dL Est Cr Clr Drug Dosing 108.04 mL/min Estimated GFR (MDRD) > 60 (>60) mL/min BUN/Creatinine Ratio 17.1 (14-18) Glucose 94 (70-99) mg/dL Calcium 9.1 (8.5-10.1) mg/dL Magnesium 1.9 (1.8-2.4) mg/dL Total Bilirubin 0.3 (0.2-1.0) mg/dL AST 29 (15-37) U/L ALT 51 (14-59) U/L Alkaline Phosphatase 98 (46-116) U/L Total Protein 7.1 (6.4-8.2) g/dl Albumin 4.3 (3.4-5.0) g/dl Globulin 2.8 gm/dL Albumin/Globulin Ratio 1.5 (1-2) TSH 3rd Generation 2.586 (0.358-3.74) uIU/mL - Re-Assessments/Exams Free Text/Narrative Re-Assessment/Exam: 03/19/21 12:36 Patient presents to the ER for evaluation of her feelings of palpitations. Initial EKG demonstrates sinus rhythm with borderline QT prolongation. We will go ahead and get some basic labs for further evaluation. 03/19/21 13:45 I have gone over all the labs with the patient, all of which are unremarkable, thyroid level is within normal limits, EKG is normal, no electrolyte abnormalities causing issues. We will go ahead and send the patient home with a Holter monitor for further investigation she will follow up with her primary care provider for further results she was made aware of strict return precautions and verbalized understanding. Departure - Departure Time of Disposition: 13:45 Disposition: Home, Self-Care 01 Condition: Good Clinical Impression: Intermittent palpitations Instructions: Palpitations, [id number] Referrals: Josef Hawthorne MD [Primary Care Provider] - Forms: ED Department Discharge Additional Instructions: You were evaluated in the ER today for your intermittent palpitations over the last 3 days. EKG, and laboratory evaluation done at today's visit demonstrated no focal abnormalities. You were sent home with a insulator apprentice to monitor your cardiac rhythm for the next 48 hours. You will need to follow-up with your regular provider for results of this test. Please allow roughly 10 days time in order for the test to get read by cardiology and for the report to get sent back to your regular provider. Sometime hopefully before Thanksgiving or shortly after Thanksgiving would be appropriate for follow-up. Please continue all other medications as prescribed by your regular care provider. Do not hesitate to return to the ER if symptoms should change or worsen. Sepsis Event Note (ED) - Focused Exam Vital Signs: Vital Signs Temp Pulse Resp BP Pulse Ox 03/19/21 12:06 97.9 F 77 20 123/83 87 L - My Orders Last 24 Hours: My Active Orders 03/19/21 13:44 Holter Monitor 48 Hours [RC] .PRN - Assessment/Plan Last 24 Hours: My Active Orders 03/19/21 13:44 Holter Monitor 48 Hours [RC] .PRN
== END 2021-03-19 14:20 | disposition home or self-care (01) ==
LOC: JD.ED 11:53
DX: R00.2 Palpitations (principal)
CPT/HCPCS: 36415; 80053; 83735; 84443; 85025; 93005; 93010; 93225; 93226; 99283; 99285-25